=== PATIENT | male | born 1960 | race Caucasian/White ===

== ENCOUNTER 2024-06-15 15:23 | Inpatient (IN) | payer OTHER, SELFPAY ==
[2024-06-15] VITALS (8 sets, daily range): BP systolic 131–144; BP diastolic 87–100; BMI 32.9
--- NOTE | 2024-06-15 11:23 | ED.GENMED ---
History of Present Illness
<Nik Chan PA-C - Last Filed: 06/15/24 14:23>
General
Chief Complaint: Throat Problem
Source: patient
Exam Limitations: none
Time Seen by Provider: 06/15/24 11:02
History of Present Illness
History of Present Illness:
63-year-old male presents complaining of 6 days worth of illness including cough and worsening sore throat. He was tested positive for COVID 2 days ago. He initially was placed on Zithromax at the clinical finish with COVID test was negative.
Upon found being positive for COVID, they stop Zithromax but started Augmentin for possible strep throat secondary to worsening sore throat. He notes that his throat feels worse on the left side he is having trouble even swallowing his secretions
at times. No chest pain. He is on Eliquis for history of A-fib. He does complain of fatigue and occasional shortness of breath.
Past History
<SAFIA Merrill Last Filed: 06/15/24 14:23>
Past History
ED Past Medical History: Arrthythmia (atrial fibrillation), Asthma, HTN and Other (Pancreatitis)
ED Past Surgical History: Tonsilectomy
Social History
Tobacco: Non-smoker
Alcohol: Former
Drug: None
Phy Exam
<SAFIA Merrill Last Filed: 06/15/24 14:23>
Physical Exam
Physical Exam:
General: Well-appearing male no acute respiratory distress
HEENT: Normocephalic no drooling. No obvious facial asymmetry. Questionable possible swelling left side of neck. No obvious asymmetry in the posterior pharynx. No trismus
Heart: Tachycardic and irregular
Lungs: Clear no wheeze
Extremities: No cyanosis or edema
Course
<Nik Chan PA-C - Last Filed: 06/15/24 14:23>
Orders/Labs/Results
Orders:
Orders
06/15/24 11:21
CT Neck With Iv Contrast Urgent
Comment:
Reason For Exam: left throat pain
0.9% Sodium Chloride 1000 ml [Nss] 1,000 ml IV BOLUS
06/15/24 11:22
Electrocardiogram (*1) Urgent
Reason for Study: Palpitations
EKG- Treatment ONCE
06/15/24 11:26
HYDROmorphone [Dilaudid] 0.5 mg IV NOW STA
06/15/24 11:38
Complete Blood Count/With Diff Urgent
Comprehensive Metabolic Panel Urgent
Manual Differential Urgent
Rapid Strep Group A Urgent
RIMA Source: Throat/Pharynx
Specimen Description:
Date Specimen was Collected: 06/15/24
Time Specimen was Collected: 11:27
06/15/24 11:43
Acetaminophen 1000MG/100Ml [Ofirmev] 1,000 mg in 100 ml .ROUTE .STK-MED
Acetaminophen 1000MG/100Ml [Ofirmev] 1,000 mg in 100 ml IV ONCE
Acetaminophen IV Indication:: No OH & No Enteral Access
06/15/24 14:10
Dexamethasone Sod Phosphate [Decadron] 6 mg IV NOW STA
06/15/24 14:17
Ampicillin/Sulbactam 3 G [Unasyn] 3 gm 0.9% Sodium Chloride 100 ml [Nss] 100 ml IV NOW
Abnormal Lab Results
06/15/24
11:38
WBC 11.6 H 10^3/uL
(4.8-10.8)
Abs Immat Gran (auto) 0.1 H 10^3/uL
(0-0.05)
Absolute Lymphs (auto) 6.6 H 10^3/uL
(1.2-3.4)
Absolute Monos (auto) 1.0 H 10^3/uL
(0.1-0.6)
Immature Gran % 0.8 H %
(0-0.5)
Neutrophils % 31.9 L %
(42.2-75.2)
Lymphocytes % 57.4 H %
(20.5-51.1)
Segmented Neutrophils 29 L %
(42-75)
Glucose 117 H mg/dl
(70-99)
AST 79 H U/L
(17-59)
ALT 126 H U/L
(0-50)
Alkaline Phosphatase 238 H U/L
(38-126)
06/15/24 11:38
06/15/24 11:38
Vital Signs
Initial and Last Documented VS:
Initial Vital Signs
Pulse Resp BP Pulse Ox
80 18 143/91 96
06/15/24 10:02 06/15/24 10:02 06/15/24 10:02 06/15/24 10:02
Last Documented Vital Signs
Temp Pulse Resp BP Pulse Ox
97.8 F 113 27 139/92 94
06/15/24 11:04 06/15/24 13:30 06/15/24 13:30 06/15/24 13:00 06/15/24 13:30
<James Ernandez MD - Last Filed: 06/15/24 14:37>
Orders/Labs/Results
Orders:
Orders
06/15/24 11:21
CT Neck With Iv Contrast Urgent
Comment:
Reason For Exam: left throat pain
0.9% Sodium Chloride 1000 ml [Nss] 1,000 ml IV BOLUS
06/15/24 11:22
Electrocardiogram (*1) Urgent
Reason for Study: Palpitations
EKG- Treatment ONCE
06/15/24 11:26
HYDROmorphone [Dilaudid] 0.5 mg IV NOW STA
06/15/24 11:38
Complete Blood Count/With Diff Urgent
Comprehensive Metabolic Panel Urgent
Manual Differential Urgent
Rapid Strep Group A Urgent
RIMA Source: Throat/Pharynx
Specimen Description:
Date Specimen was Collected: 06/15/24
Time Specimen was Collected: 11:27
06/15/24 11:43
Acetaminophen 1000MG/100Ml [Ofirmev] 1,000 mg in 100 ml .ROUTE .STK-MED
Acetaminophen 1000MG/100Ml [Ofirmev] 1,000 mg in 100 ml IV ONCE
Acetaminophen IV Indication:: No OH & No Enteral Access
06/15/24 14:10
Dexamethasone Sod Phosphate [Decadron] 6 mg IV NOW STA
06/15/24 14:17
Ampicillin/Sulbactam 3 G [Unasyn] 3 gm 0.9% Sodium Chloride 100 ml [Nss] 100 ml IV NOW
Abnormal Lab Results
06/15/24
11:38
WBC 11.6 H 10^3/uL
(4.8-10.8)
Abs Immat Gran (auto) 0.1 H 10^3/uL
(0-0.05)
Absolute Lymphs (auto) 6.6 H 10^3/uL
(1.2-3.4)
Absolute Monos (auto) 1.0 H 10^3/uL
(0.1-0.6)
Immature Gran % 0.8 H %
(0-0.5)
Neutrophils % 31.9 L %
(42.2-75.2)
Lymphocytes % 57.4 H %
(20.5-51.1)
Segmented Neutrophils 29 L %
(42-75)
Glucose 117 H mg/dl
(70-99)
AST 79 H U/L
(17-59)
ALT 126 H U/L
(0-50)
Alkaline Phosphatase 238 H U/L
(38-126)
06/15/24 11:38
06/15/24 11:38
Vital Signs
Initial and Last Documented VS:
Initial Vital Signs
Pulse Resp BP Pulse Ox
80 18 143/91 96
06/15/24 10:02 06/15/24 10:02 06/15/24 10:02 06/15/24 10:02
Last Documented Vital Signs
Temp Pulse Resp BP Pulse Ox
97.8 F 113 27 139/92 94
06/15/24 11:04 06/15/24 13:30 06/15/24 13:30 06/15/24 13:00 06/15/24 13:30
<Nik Chan PA-C - Last Filed: 06/15/24 14:23>
MDM/Problems Addressed
Differential Diagnosis Includes:
Patient with significant throat pain as primary reason for presentation. Known COVID-positive result 2 days ago. Question secondary strep infection versus peritonsillar abscess. CT of the neck pending.
Patient has chronic paroxysmal atrial fibrillation. He is on Eliquis. He presented today in rapid atrial fibrillation. Suspect may be related to illness, dehydration, current steroid use or combination of the above. Fluids ordered.
<Nik Chan PA-C - Last Filed: 06/15/24 14:23>
*Critical Care Note
Total Time (30-74mins, 75-104mins- exclusive of procedures): Not Applicable
ED Attending Note
<Nik Chan PA-C - Last Filed: 06/15/24 14:23>
-
Portions of this chart may have been created with voice recognition software.� Occasional wrong word or��sound alike� substitutions may have occurred due to the inherent limitations of voice recognition software.
<James Ernandez MD - Last Filed: 06/15/24 14:37>
ED Attending Note
Patient seen and examined by attending physician: Yes
I performed the substantive portion of visit, reviewed & personally made and approve the management plan that is documented in note by myself or IMELDA.: Yes
ED Attending Note:
63-year-old male started with what he thought was sinus-like symptoms 6 days ago. 2 negative COVID test at home. Symptoms progressed. Started on azithromycin via a telemedicine report. 2 days ago tested positive for COVID. Has had gradually
increasing throat pain mostly on the left side. Difficulty handling secretions at times. No chest pain no shortness of breath.
On exam patient is nontoxic. Slightly hoarse voice. No drooling or stridor here. No trismus. No neck swelling. There appears to be some early soft palate swelling on the left with a questionable small exudate posterior left. Mild diffuse uvula
swelling.
Tachycardic and irregular. No respiratory distress. Warm and dry. Perfusing well.
Impression COVID infection. Given time course not a candidate for Paxlovid. Biggest concern would be the neck symptoms. No acute airway issues at this time. Some concern for early peritonsillar abscess. CT scan pending. As for his atrial
fibrillation. Heart rate is 1 10-1 20. Very reluctant to cardiovert given the airway issue. Also reluctant to rate control given previous postconversion EKGs were baseline EKGs have a heart rate in the 40s. Will give fluid and observe heart rate
at this time. Patient is anticoagulated
1400.... CT shows swelling to the soft palate and swelling to the left vallecula. Asymmetrical. Patient clinically has remained stable. No drooling or stridor. Slight hoarseness to his voice. Discussed with
Discharge Plan
Departure
Prescriptions:
No Action
cetirizine 10 MG tablet
10 mg PO DAILY
metoprolol succinate 25 MG tablet extended release 24 hr
50 mg PO BID
fluticasone propionate 1 SPRAY spray,suspension
1 spray intranasal DAILY
alprazolam 1 MG tablet extended release 24 hr
1 mg PO DAILY
apixaban [Eliquis] 5 MG tablet
5 mg PO BID
omeprazole 40 MG capsule,delayed release(DR/EC)
40 mg PO DAILY
dofetilide 500 MCG capsule
500 mcg PO Q12 Qty: 60 11RF
Referrals:
Jamse Jimenez DO [Family Provider] -
Interventions
Interventions:
*Risk Screen - Suicide Last Done: 06/15/24 11:50
*General Assessment Last Done: 06/15/24 11:50
*Neglect/Abuse Screening Last Done: 06/15/24 11:50
*ED COVID-19 Vaccine History Last Done: 06/15/24 11:50
ED-EENT Assessment Last Done: 06/15/24 11:50
ED- Pulmonary Assessment Last Done: 06/15/24 11:50
Discharge Date and Time
Print Language: ZAMBIAN
[2024-06-15] MEDS: NSS 1000 IV ×2 (11:44→17:00)
[2024-06-15] MEDS: OFIRMEV 100 IV (11:45)
[2024-06-15 12:17] LABS: ALT (SGPT) 126 U/L (0-50); AST (SGOT) 79 U/L (17-59); Albumin 4.1 g/dl (3.5-5.0); Alkaline Phosphatase 238 U/L (38-126); Blood Urea Nitrogen 13 mg/dl (9-20); Calcium 9.2 mg/dl (8.4-10.2); Carbon Dioxide 23 mmol/L (22-30); Chloride 103 mmol/L (98-107); Glucose 117 mg/dl (70-99); Potassium 4.5 mmol/L (3.5-5.1); Sodium 138 mmol/L (135-145); Total Bilirubin 0.8 mg/dl (0.2-1.3); Total Protein 7.1 g/dl (6.3-8.2); eGFR > 60.00
[2024-06-15 12:19] LABS: Hematocrit 40.9 % (39.0-52.0); Hemoglobin 14.7 g/dL (13.0-18.0); Mean Corp Hgb Conc. 35.9 g/dL (33.0-37.0); Mean Corpuscular Hgb 30.3 pg (27.0-31.0); Mean Corpuscular Volume 84.3 fL (80.0-94.0); Mean Platelet Volume 9.2 fL (7.4-10.4); Platelet Count 134 10^3/uL (130-400); Red Blood Cell Count 4.85 10^6/uL (4.70-6.10); Red Cell Dist. Width 12.5 % (11.5-14.5); White Blood Cell Count 11.6 10^3/uL (4.8-10.8)
[2024-06-15 12:20] LABS: % Basophils 0.9 % (0-2); % Eosinophils 0.1 % (0-6); % Immature Granulocytes 0.8 % (0-0.5); % Lymphocytes 57.4 % (20.5-51.1); % Monocytes 8.9 % (1.7-9.3); % Neutrophils 31.9 % (42.2-75.2); Absolute Basophils 0.1 10^3/uL (0-0.2); Absolute Immature Granulocytes 0.1 10^3/uL (0-0.05); Absolute Lymphocytes 6.6 10^3/uL (1.2-3.4); Absolute Neutrophils 3.7 10^3/uL (1.4-6.5); Nucleated Red Blood Cells % 0 % (-)
[2024-06-15 12:38] LABS: Absolute Neutrophils -Man Diff 3.4 10^3/uL (1.4-6.5); Band Neutrophils 1 % (0-3); Lymphocytes 50 % (20-51); Segmented Neutrophils 29 % (42-75)
[2024-06-15 12:42] LABS: Monocytes 4 % (2-9)
[2024-06-15 12:45] LABS: Atypical Lymphocytes 16 %; Platelets Checked YES
[2024-06-15 12:46] LABS: Microcytosis Slight; Normal RBC Morphology No; Ovalocytes FEW
[2024-06-15 12:47] LABS: Total Cells Counted 100
[2024-06-15] MEDS: DECADRON 6 MG IV ×3 (14:29→20:55)
[2024-06-15] MEDS: UNASYN IV ×2 (14:30→20:54)
--- NOTE | 2024-06-15 15:17 | W.PN.ENT ---
Today's Communication
-
seen in ER
Impression / Plan
-
Pt has Covid and epiglottic, vallecula swelling
needs admission, antibiotics, steroids, diflucan
Subjective Data
-
asked to see patient for sore throat and dysphagia
Objective Data
-
Vital Signs
Temp Pulse Resp BP Pulse Ox
97.8 F 113 27 139/92 94
06/15/24 11:04 06/15/24 13:30 06/15/24 13:30 06/15/24 13:00 06/15/24 13:30
Lab Results
06/15/24 11:38
06/15/24 11:38
Calcium 9.2 mg/dl (8.4-10.2) 06/15/24 11:38
Total Bilirubin 0.8 mg/dl (0.2-1.3) 06/15/24 11:38
AST 79 U/L (17-59) H 06/15/24 11:38
ALT 126 U/L (0-50) H 06/15/24 11:38
Alkaline Phosphatase 238 U/L (38-126) H 06/15/24 11:38
flexible laryngoscopy- epiglottic swelling and aryepiglottif fold particularly on left, exudate of vallecula, airway OK,
Physical Exam
-
flexible laryngoscopy- epiglottic swelling and aryepiglottif fold particularly on left, exudate of vallecula, airway OK,
Chest: Clear
Data Reviewed
-
Radiology Results: Report Reviewed and Image Reviewed
--- NOTE | 2024-06-15 15:20 | W.PN.UPDATE ---
Update Note
Progress Note Update
I personally performed a history and physical exam of the patient and discussed management with the resident. I reviewed the resident's note and agree with the documented findings and plan of care HPI/CC.
63 y/o M p/w CC of odynophagia. He has been ill for 6 days and tested positive for COVID 2 days ago. Since then he has been on Augmentin but has had worsening odynophagia. Also complains of difficulty managing secretions. Specifically he states
that he is having trouble swallowing secretions. Currently without any drooling.
139/92, 113, 27, 97.8 �F, 94% RA
Gen: NAD, AAOx3.
Eyes: EOMI, PERRLA, no scleral icterus.
Neck: supple. No lymphadenopathy.
CV: tachy, irreg/irreg, +S1/S2, no m/r/g.
Resp: CTAB, no rales, wheezes, or rhonchi.
Abd: +BS, soft, NT, ND
Skin: No rashes.
Neuro: CN 2-12 intact, non-focal.
Psych: Normal mood and affect.
Lab Results
06/15/24
11:38
WBC 11.6 H
RBC 4.85
Hgb 14.7
Hct 40.9
MCV 84.3
MCH 30.3
MCHC 35.9
RDW 12.5
Plt Count 134
Plt Count Comment Yes
MPV 9.2
Abs Immat Gran (auto) 0.1 H
Absolute Neuts (auto) 3.7
Absolute Lymphs (auto) 6.6 H
Absolute Monos (auto) 1.0 H
Absolute Eos (auto) 0.0
Absolute Basos (auto) 0.1
Total Counted 100
Immature Gran % 0.8 H
Neutrophils % 31.9 L
Lymphocytes % 57.4 H
Monocytes % 8.9
Eosinophils % 0.1
Basophils % 0.9
Nucleated RBC % 0
Abs Neuts (Manual) 3.4
Segmented Neutrophils 29 L
Band Neutrophils 1
Lymphocytes (Manual) 50
Monocytes (Manual) 4
Atypical Lymphocytes 16
Normal RBC Morphology No
Microcytosis Slight
Ovalocytes Few
Sodium 138
Potassium 4.5
Chloride 103
Carbon Dioxide 23
BUN 13
Creatinine 0.8
eGFR > 60.00
Glucose 117 H
Calcium 9.2
Total Bilirubin 0.8
AST 79 H
ALT 126 H
Alkaline Phosphatase 238 H
Total Protein 7.1
Albumin 4.1
CTA chest: There is enlargement of the adenoids and tonsils. Enlargement of the lingual tonsils extending inferiorly to the vallecula, left greater than right. Subtle low density within the left vallecula, but no evidence for well-formed abscess at
this time. There is pharyngeal mucosal thickening present diffusely. There is also soft tissue thickening in the region of the larynx, and would suggest a component of laryngitis. On these supine images, no airway is identified in the region of the
oropharynx, and this finding can be position dependent. Significantly enlarged lymph nodes within the neck, left greater than right, compatible with inflammatory adenitis. The visualized upper lungs appear clear. Not mentioned above, the visualized
ascending aorta has short axis diameter 4.5 cm. The patient has had previous CT of the chest of November 13, 2019, with ascending aorta having short axis diameter 4.1 cm at that time. Consideration for follow-up CT angiography of the chest when
clinically feasible.
Sepsis due to acute pharyngitis:
-already seen by ENT, discussed with Dr. Ruiz.
-Flexible laryngoscopy: epiglottic swelling and aryepiglottic fold particularly on left, exudate of vallecula, airway OK
-cont with IV Unasyn/Decadron/Diflucan
-IVF support
-speech eval (Yasmin Arora notified via [employer] at 1536 that the pt needs to be seen today)
-clears with meds for now
-suspect elevated LFTs due to acute infection
Afib with RVR:
-ECG (read by me): Afib @ 124, nl axis and QRS/QTc intervals, no acute ST/TW changes
-attempt rate control with aggressive hydration
-IV BB PRN
-cont Eliquis
Essential HTN:
-cont Lisinopril
Obesity due to excess calories:
-encourage wt loss
-effects all aspects of care
--- NOTE | 2024-06-15 15:22 | HPS.HSE ---
Family Physician
-
Family Physician: James Jimenez
Chief Complaint
-
Sore throat and difficulty swallowing.
History of Present Illness
James Simental, age 63, came to the emergency on 06-15-24 with progressive sore throat and difficulty swallowing. He was chocking on his own saliva due to pain and decided to go to the hospital. He was initially started on azithromycin on 06-10-24
for a presumed bacterial pharyngitis, then switched to amoxicillin when he tested positive for COVID-19 on 06-12-24 (he was told he may have a superimposed bacterial infection). His throat symptoms continued to progress and then he decided to come
here. He has had 3 days of azithromycin and 2 days of amoxicillin prior to his admission.
Medical History
Past Medical History
Past Medical History: Reports Other (generalized anxiety disorder; hyperlipidemia; hypertension; atrial fibrillation status-post ablation and cardioversion; gastroesophageal reflux disease)
Past Surgical History: Reports Other (tonsillectomy)
Social History
Tobacco: Non-smoker
Alcohol: Occasional
Drug: None
Personal:
Living: With Family ()
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
Family History
Family History: Not pertinent
Allergies / Home Medications
Allergies reflects when Allergies were last updated in [facility].
Home Medications with original date entered in [facility]
Allergy/Medication List:
Allergies
Allergy/AdvReac Type Severity Reaction Status Date / Time
No Known Allergies Allergy Verified 11/23/22 11:54
Home Medications
alprazolam 1 mg tablet,extended release 24 hr 1 mg PO DAILY Mental Health/Anxiety 01/02/20
apixaban 5 mg tablet (Eliquis) 5 mg PO BID Blood clot prevention/tx 01/02/20
cetirizine 10 mg tablet 10 mg PO DAILY Allergies 01/02/20
omeprazole 40 mg capsule,delayed release 40 mg PO DAILY Gastrointestinal issue 12/05/21
alprazolam 0.5 mg tablet,extended release 24 hr 0.5 mg PO DAILYPRN PRN anxiety 06/15/24
amoxicillin 875 mg-potassium clavulanate 125 mg tablet 1 tab PO BID 06/15/24
atorvastatin 10 mg tablet 10 mg PO QPM 06/15/24
lisinopril 20 mg tablet 20 mg PO DAILY 06/15/24
methylprednisolone 4 mg tablet 4 mg PO DAILY 06/15/24
Review of Systems
-
Constitutional: Reports No Symptoms
EENT: Reports Other (sore throat; painful swallowing - solids and liquid)
Respiratory: Reports No Symptoms
Cardiac: Reports Palpitations (intermittent)
Abdomen/GI: Reports No Symptoms
: Reports No Symptoms
Musculoskeletal: Reports No Symptoms
Skin: Reports No Symptoms
Neurological: Reports No Symptoms
Endocrine: Reports No Symptoms
Hematologic/Lymphatic: Reports No Symptoms
Psych: Reports No Symptoms
Physical Exam
Vital Signs
Vital Signs
Temp Pulse Resp BP Pulse Ox
97.8 F 113 27 139/92 94
06/15/24 11:04 06/15/24 13:30 06/15/24 13:30 06/15/24 13:00 06/15/24 13:30
Physical Exam
General: No Apparent Distress and Comfortable
HEENT: NormoCephalic, Anicteric, Thrush (pharyngeal), Pharyngeal Erythema and Other (left-sided neck tenderness)
Respiratory: Clear and Non Labored Respirations
Cardiac: S1/S2 and Regular Rhythm
GI: Soft, Non Tender, Non Distended and No Hepatosplenomegaly
Rectal: Deferred by Provider
Genito-urinary: Deferred by me
Musculoskeletal: No Clubbing, No Cyanosis and No Edema
Skin: Warm, Dry and IV/Catheter Site
Neuro: Awake, Alert and Oriented
Hematologic/Lymphatic: Lymphadenopathy (left anterior and posterior cervical)
Psych: Calm
Laboratory Results
-
06/15/24 11:38
06/15/24 11:38
Laboratory Results
Total Bilirubin 0.8 mg/dl (0.2-1.3) 06/15/24 11:38
AST 79 U/L (17-59) H 06/15/24 11:38
ALT 126 U/L (0-50) H 06/15/24 11:38
Alkaline Phosphatase 238 U/L (38-126) H 06/15/24 11:38
Impression/Plan
-
Impression and plan
Sepsis secondary to acute laryngitis, pharyngitis, epiglottitis and tonsillitis, likely bacterial
COVID-19 infection
Oral thrush
- 3 days of azithromycin and 2 days of amoxicillin prior to his admission.
- Flexible laryngoscopy in the emergency by otolaryngology noted clear airway, epiglottic and aryepiglottic fold swelling, and exudate of vallecula.
- Continue ampicillin-sulbactam; started 06-15-24.
- Add fluconazole per ENT; started 06-15-24.
- IV hydration and dexamethasone.
- Low threshold for contacting ENT stat if he develops respiratory distress.
- Pain management, clear liquid diet, and speech therapy evaluation.
- He has had 1 J&J vaccine and 1 Moderna booster 2 years ago; respiratory precautions.
- Nebulizers and oxygen supplementation if needed.
- Infectious diseases consultation.
Atrial fibrillation with rapid ventricular response
History of ablation and cardioversion
- Continue metoprolol IV.
- Continue apixaban.
Essential hypertension
- Continue lisinopril.
Hyperlipidemia
- Continue atorvastatin.
Gastroesophageal reflux disease
- Continue PPI.
Generalized anxiety disorder
- Continue alprazolam.metop
Venous thromboembolism prophylaxis
- Apixaban.
Code status
- Full.
--- NOTE | 2024-06-15 16:11 | CON.MD ---
Consultation - Medical
-
Chief complaint: Sore throat and dysphagia, hoarseness
History of present illness: This patient is a 63-year-old gentleman with a history of COVID over the last 4 or 5 days. He has been treated with oral steroids as well as Augmentin. He has had a progressive sore throat and dysphagia and was having
difficulty drinking liquids today. He notices hoarseness. He does note some tightness in his throat but is not having any respiratory distress. He presented to the emergency room and CT scan was performed which did not show evidence of abscess
but did show some bolus in the vallecula particularly on the left side.
Past medical history:
Allergies: No known drug allergies
Home medications:
Alprazolam 1 mg p.o. daily as needed
Augmentin 1 p.o. twice daily
Atorvastatin 10 mg p.o. every afternoon
Cetirizine 10 mg p.o. daily
Eliquis 5 mg p.o. twice daily
Lisinopril 20 mg p.o. daily
Methylprednisolone 4 mg p.o. daily
Omeprazole 40 mg p.o. daily
Chronic illnesses: Obesity, hyperlipidemia, paroxysmal atrial fibrillation, anxiety disorder
Hospitalizations: The patient is being hospitalized for dysphagia and hoarseness as well as tightness in the throat
Family history: Asked and is noncontributory for this problem
Review of systems: Positive for dysphagia, positive for hoarseness, positive for sore throat, positive for tightness in the throat but negative for respiratory distress
Physical examination:
Head: Atraumatic and normocephalic
Eyes: Extraocular movements are intact and pupils are equal and reactive to light
Ears: Clear bilaterally
Nose: Clear mucosa without evidence of infection or bleeding, deviated septum and evidence of chronic inflammation/allergies
Thyroid gland: Normal to examination
Salivary glands: Normal to examination
Vestibular: Normal to exam
Cranial nerves II through XII: Intact bilaterally
Hypopharynx and larynx: Could not be adequately visualized with a mirror
Procedure: Flexible laryngoscopy
The patient's hypopharynx and larynx were visualized with a flexible laryngoscope through the right nose. This was done after the nose was topically anesthetized using viscous lidocaine on a Q-tip. The patient tolerated the procedure well. Good
visualization was achieved. He has inflammation and exudate of the hypopharynx and the vallecula with some swelling of the vallecula but no significant airway compromise. He does have some swelling of the epiglottis. Vocal cord motion is normal
and airway is adequate. The patient has minimal pooling of secretions
Impression/plan: This 63-year-old gentleman presents with a 5-day history of COVID-19 and also has evidence of epiglottic inflammation/epiglottitis. He has exudate in his vallecula particularly on the left side. He may have evidence of thrush. I
think antibiotics and steroids would be helpful. He has received a dose of Unasyn and that is a good choice going forward. I think it might be prudent to give him an antifungal such as fluconazole. I will plan to follow the patient
[2024-06-15] MEDS: DIFLUCAN 200 MG 50 MG IV (17:00)
[2024-06-15] MEDS: TYLENOL 1000 MG PO ×2 (17:08→20:55)
[2024-06-15] MEDS: LIPITOR 10 MG PO (17:08)
[2024-06-15] MEDS: LOPRESSOR 5 MG IV ×2 (17:09→22:16)
--- NOTE | 2024-06-15 17:40 | PTOTSP ---
ST Acute Care Evaluation
Pt's current clinical presentation is that of a functional oral, pharyngeal, and esophageal swallow. No overt s/s of penetration or aspiration observed at bedside with either solids or liquids.
Recommendations:
- Upgrade pt to REGULAR SOLIDS and THIN LIQUIDS, with meds as tolerated.
- General aspiration and reflux precautions.
- No skilled SPACE PHYSICIST services deemed necessary at this time. SPACE PHYSICIST to sign off. Please re-consult if anything changes. Thank you.
[2024-06-15] MEDS: ELIQUIS 5 MG PO (20:55)
[2024-06-16] VITALS (7 sets, daily range): BP systolic 133–162; BP diastolic 78–114; BMI 32.9
[2024-06-16] MEDS: NSS 1000 IV ×2 (01:45→08:51)
[2024-06-16] MEDS: UNASYN IV ×2 (01:46→08:51)
[2024-06-16] MEDS: DECADRON 6 MG IV ×3 (01:46→14:47)
[2024-06-16] MEDS: LOPRESSOR 5 MG IV ×3 (04:11→14:49)
--- NOTE | 2024-06-16 06:48 | W.PN.UPDATE ---
Update Note
Progress Note Update
Patient is A-fib with hr 120s, bp 162/ 108, denied chest pain. Magnesium was added to morning lab, result still pending.
Per nursing staff, the patient was a-fib at 4am Lopressor PRN given but now back to a-fib again. will add another dose of Lopressor 2.5mg IV now.
[2024-06-16] MEDS: LOPRESSOR 2.5 MG IV (07:21)
[2024-06-16 08:40] LABS: Lactic Acid 0.8 mmol/L (0.7-2.0)
[2024-06-16 08:47] LABS: Hematocrit 38.1 % (39.0-52.0); Hemoglobin 13.8 g/dL (13.0-18.0); Mean Corp Hgb Conc. 36.2 g/dL (33.0-37.0); Mean Corpuscular Hgb 30.1 pg (27.0-31.0); Mean Corpuscular Volume 83.2 fL (80.0-94.0); Mean Platelet Volume 9.3 fL (7.4-10.4); Platelet Count 150 10^3/uL (130-400); Red Blood Cell Count 4.58 10^6/uL (4.70-6.10); Red Cell Dist. Width 12.4 % (11.5-14.5); White Blood Cell Count 6.1 10^3/uL (4.8-10.8)
[2024-06-16] MEDS: PROTONIX 40 MG PO (08:49)
[2024-06-16] MEDS: TYLENOL 1000 MG PO ×3 (08:49→21:32)
[2024-06-16] MEDS: ELIQUIS 5 MG PO ×2 (08:49→19:42)
[2024-06-16] MEDS: ZYRTEC 10 MG PO (08:49)
[2024-06-16] MEDS: ZESTRIL 20 MG PO (08:50)
[2024-06-16 09:00] LABS: ALT (SGPT) 98 U/L (0-50); AST (SGOT) 47 U/L (17-59); Albumin 3.7 g/dl (3.5-5.0); Alkaline Phosphatase 200 U/L (38-126); Blood Urea Nitrogen 13 mg/dl (9-20); Calcium 9.2 mg/dl (8.4-10.2); Carbon Dioxide 22 mmol/L (22-30); Chloride 106 mmol/L (98-107); Estimated Creatinine Clearance > 125 ml/min; Glucose 145 mg/dl (70-99); Magnesium 1.9 mg/dl (1.6-2.3); Potassium 4.3 mmol/L (3.5-5.1); Sodium 140 mmol/L (135-145); Total Bilirubin 0.6 mg/dl (0.2-1.3); Total Protein 6.8 g/dl (6.3-8.2); eGFR > 60.00
[2024-06-16 09:26] LABS: Cortisol, Random 2.4 ug/dl
[2024-06-16 10:20] LABS: Lymphocytes 14 % (20-51); Monocytes 10 % (2-9); Segmented Neutrophils 56 % (42-75)
[2024-06-16 10:21] LABS: Atypical Lymphocytes 20 %; Normal RBC Morphology Yes; Platelets Checked Yes; Total Cells Counted 100
--- NOTE | 2024-06-16 11:54 | W.PN.HOSP.TC ---
Addendum entered and electronically signed by Devan Crawford MD 06/16/24 23:50:
Attending Addendum-
I saw and evaluated the patient. I reviewed the resident�s note and agree with findings and plan as documented in the resident�s note. Sub: Called by nursing re rapid a fib, patient asymptomatic ST improving, no CP palps Full 12 point ROS reviewed
and negative except as documented Exam: Vitals reviewed in chart GEN-nad throat no exudates pos cerv LAD heart tachy irreg irreg lungs clear abd soft LE no edema
# Sepsis secondary to acute viral laryngitis, pharyngitis, epiglottitis and tonsillitis
- from mono
- dc abx
- monitor
- Flexible laryngoscopy in the emergency ENT-clear airway, epiglottic and aryepiglottic fold swelling, and exudate of vallecula.
- DC ampicillin-sulbactam
- DC fluconazole
- DC dexamethasone.
- appreciate ID input
# Atrial fibrillation with rapid ventricular response
-History of ablation and cardioversion
-start IV cardizem
-continue apixaban.
-monitor on tele
# Essential hypertension
- Continue lisinopril.
# Hyperlipidemia
- Continue atorvastatin.
# Gastroesophageal reflux disease
- Continue PPI.
# Generalized anxiety disorder
- Continue alprazolam
# Venous thromboembolism prophylaxis
- Apixaban.
Code status
- Full.
Dispo if RC DC in am
Time spent coordinating care, review of plan of care with resident, personally reviewed records in EMR, med rec, consults, notes, labs, radiology, d/w nursing � 55 mins
Original Note:
Today's Communication/Plan
-
Will begin cardizem drip for afib with RVR
Assessment / Plan
Assessment / Plan
#acute laryngitis, pharyngitis, epiglottitis and tonsillitis
#COVID-19 infection
#Oral thrush
- 3 days of azithromycin and 2 days of amoxicillin prior to his admission.
- Flexible laryngoscopy in the emergency by otolaryngology noted clear airway, epiglottic and aryepiglottic fold swelling, and exudate of vallecula.
- ampicillin-sulbactam, fluconazole, and dexamethasone Discontinued 06/16 given +mono test. Lower concern for bacterial or fungal etiology at this time.
- Low threshold for contacting ENT stat if he develops respiratory distress.
- No longer having difficulty swallowing, diet advanced and tolerating PO solids, liquids, medications.
- He has had 1 J&J vaccine and 1 Moderna booster 2 years ago; respiratory precautions.
- Nebulizers and oxygen supplementation if needed.
- Infectious diseases consultation.
Atrial fibrillation with rapid ventricular response
History of ablation and cardioversion
- Continue metoprolol IV.
- Continue apixaban.
- Will begin cardizem drip, with goal HR < 110.
- Continue telemetry.
Essential hypertension
- Continue lisinopril.
Hyperlipidemia
- Continue atorvastatin.
Gastroesophageal reflux disease
- Continue PPI.
Generalized anxiety disorder
- Continue home alprazolam
Venous thromboembolism prophylaxis
- Apixaban.
Code status
- Full.
Anticipated Discharge: 24 - 48 hours
Subjective/Interval History
-
Date of Service: June 16, 2024
Reports that his sore throat is improving slightly. He no longer has any difficulty swallowing. He is tolerating PO solids and liquids. He reports a few seconds of dizziness that occurs a few times throughout the week, which has been his baseline
prior to admission and has not experienced any episodes here. He denies lightheadedness, dizziness in the hospital, chest pain, palpitations, shortness of breath, nausea, vomiting.
Objective Data
-
Labs:
Laboratory Results
06/16/24
08:17
WBC 6.1
Hgb 13.8
Hct 38.1 L
Plt Count 150
Sodium 140
Potassium 4.3
Chloride 106
Carbon Dioxide 22
BUN 13
Creatinine 0.7
Glucose 145 H
Calcium 9.2
Total Bilirubin 0.6
AST 47
ALT 98 H
Alkaline Phosphatase 200 H
Vital Signs:
Vital Signs
Temp Pulse Resp BP Pulse Ox
97.8 F 77 18 137/89 98
06/16/24 11:25 06/16/24 11:25 06/16/24 11:25 06/16/24 11:25 06/16/24 11:25
I&O
06/15/24 06/16/24 06/17/24
06:59 06:59 06:59
Intake Total 600 / 600
Balance 600 / 600
Review of Systems
-
History Source: Patient
All other systems: Reviewed and negative
Physical Exam
-
General: Well Developed, Well Nourished, No Apparent Distress, Comfortable and Conversant
HEENT: Normocephalic and Atraumatic
Respiratory: Clear to Auscultation
Cardiac: Irregular Rhythm and Tachycardic
GI: Soft, Nontender, Nondistended and Normal Bowel Sounds
Musculoskeletal: No Edema
Skin: Warm and Dry
Neuro: Awake, Alert and Oriented
Psych: Calm
Data Reviewed
-
Labs: Labs Reviewed by me and Discussed with Physician
--- NOTE | 2024-06-16 11:59 | CON.ID ---
Addendum entered and electronically signed by Alaina Schwartz MD 06/16/24 14:48:
I saw and evaluated the patient. I discussed and reviewed the resident�s note and agree with findings and plan as documented in the resident�s note.
Exam: bilateral cervical LAD. + exudate psoterior pharynx L> right. No thrush.
#Suspect acute EBV
- Pharyngitis without response to antibiotic, + atypical lymphocytes, and elevated transaminases.
-No known h/o of mono in the past.
- Check Monotest. If negative, will check EBV serology panel in AM.
-If + [place], check US of spleen assess for splenomegaly.
- Recommend supportive care.
-DC amp/sulbactam and fluconazole.
#COVID-19 infection - incidental finding
- Status-post 1* J&J vaccine and 1* Moderna booster
- No respiratory distress and clear exam.
- Asymptomatic. No indication for antiviral treatment.
- COVID isolation x 10 days from 06/12/24.
#Atrial fibrillation with rapid ventricular response
#History of ablation and cardioversion
Essential hypertension
Hyperlipidemia
Gastroesophageal reflux disease
Generalized anxiety disorder
Original Note:
Consultation
-
Date/Time Consultation Requested: 06-16-24
Date/Time Consultation Performed: 06-16-24
Requesting Provider: Dr. Lentz
Performing Provider: Dr. Schwartz
Reason for Consultation: sepsis secondary to URI; COVID-19; oral thrush
Chief Complaint / Past History
Chief Complaint
Sore throat and difficulty swallowing
History of Present Illness
James Simental, age 63, came to the emergency on 06-15-24 with progressive sore throat, fatigue and difficulty swallowing. He was started on azithromycin on 06-10-24 for a presumed bacterial pharyngitis, then switched to amoxicillin when he tested
positive for COVID-19 on 06-12-24 (he was told he may have a superimposed bacterial infection). He continued to worsen and started having difficulty swallowing - then came to the ED. In the ED, ENT performed a flexible laryngoscopy which noted clear
airway, epiglottic and aryepiglottic fold swelling, and exudate of vallecula. He was started on IV dexamethasone, ampicillin-sulbactam and fluconazole.
Past History
Past Medical History: Other (generalized anxiety disorder; hyperlipidemia; hypertension; atrial fibrillation status-post ablation and cardioversion; gastroesophageal reflux disease)
Past Surgical History: Other (tonsillectomy)
Allergy History:
No Known Allergies Allergy (Verified 11/23/22 11:54)
Medications Reviewed: Yes
Social History
Tobacco: Non-Smoker
Alcohol: Occasional
Drug: None
Personal:
Living: With Family
Employment: Employed
Review of Systems
Review of Systems
General: Change in Appetite (decreased); Negative Fever or Chills
HEENT: Lymphadenopathy (left neck)
Cardiovascular: Negative Chest Pain, Edema or Palpitations
Respiratory: Cough (mild); Negative Dyspnea
Gasteroenterology: Negative Nausea or Vomiting
Genital / Urological: Negative Dysuria
Hematologic: Negative Bleeding Problems
Endocrine: Fatigue; Negative Weakness
Musculoskeletal: Joint Pain
Skin / Hair / Nails: Negative Rash
Neurological: Negative Headache
Vital Signs
Temp Pulse Resp BP Pulse Ox
97.8 F 77 18 137/89 98
06/16/24 11:25 06/16/24 11:25 06/16/24 11:25 06/16/24 11:25 06/16/24 11:25
Physical Exam
Physical Exam
Constitutional: No Acute Distress and Comfortable
Head: Normocephalic
Eyes: Pupils Equal and Pupils Round
Pharynx: Erythema
Lymph Nodes: Lymphadenopathy (left anterior and posterior cervical)
Cardiovascular: Regular Rate and S1/S2
Pulmonary: Clear and Non Labored
Gastrointestinal: Soft, Non Tender and Non Distended
Extremities: Negative Edema, Clubbing or Cyanosis
Musculoskeletal: Negative Joint Swelling
Skin: Warm and Dry
Neurological: Awake, Alert, Oriented and No Motor Deficits
Psychological: Calm
Lab / Diagnostic Study Results
06/16/24 08:17
06/16/24 08:17
Abs Immat Gran (auto) 0.1 10^3/uL (0-0.05) H 06/15/24 11:38
Absolute Neuts (auto) 3.7 10^3/uL (1.4-6.5) 06/15/24 11:38
Absolute Lymphs (auto) 6.6 10^3/uL (1.2-3.4) H 06/15/24 11:38
Absolute Monos (auto) 1.0 10^3/uL (0.1-0.6) H 06/15/24 11:38
Absolute Basos (auto) 0.1 10^3/uL (0-0.2) 06/15/24 11:38
Total Counted 100 06/16/24 08:17
Immature Gran % 0.8 % (0-0.5) H 06/15/24 11:38
Neutrophils % 31.9 % (42.2-75.2) L 06/15/24 11:38
Lymphocytes % 57.4 % (20.5-51.1) H 06/15/24 11:38
Monocytes % 8.9 % (1.7-9.3) 06/15/24 11:38
Eosinophils % 0.1 % (0-6) 06/15/24 11:38
Basophils % 0.9 % (0-2) 06/15/24 11:38
Abs Neuts (Manual) 3.4 10^3/uL (1.4-6.5) 06/15/24 11:38
Segmented Neutrophils 56 % (42-75) 06/16/24 08:17
Band Neutrophils Not Reportable 06/16/24 08:17
Lymphocytes (Manual) 14 % (20-51) L 06/16/24 08:17
Lactic Acid 0.8 mmol/L (0.7-2.0) 06/16/24 08:17
Microbiology Results
Micro:
06/16/24 09:21 Blood Culture - Pending
Blood/Venous
06/16/24 08:17 Blood Culture - Pending
Blood/Venous
06/15/24 11:38 Streptococcus Screen (RIMA) - Pending
Throat/Pharynx Streptococcus Rapid Screen - Final
Rapid Strep Screen (Group A) Negative
Assessment / Plan
Acute laryngitis, pharyngitis, epiglottitis, tonsillitis and lymphadenopathy
- He worsened despite of 3 days of azithromycin starting from 06-10-24 and 2 days of amoxicillin starting 06-12-24.
- Oxygenation normal on room air; T-max of 98.6 F; tachycardic with atrial fibrillation.
- Atypical lymphocytes and relative lymphocytosis on 06-15-24.
- Failure to respond with antibiotics, and improvement on dexamethasone.
- Likely a viral syndrome; discontinue ampicillin-sulbactam and fluconazole.
- Check Monotest; if negative, will check titers in AM.
COVID-19 infection
- Status-post 1* J&J vaccine and 1* Moderna booster
- No respiratory distress and clear exam.
- No indication for antiviral treatment.
- Respiratory precautions.
Atrial fibrillation with rapid ventricular response
History of ablation and cardioversion
Essential hypertension
Hyperlipidemia
Gastroesophageal reflux disease
Generalized anxiety disorder
--- NOTE | 2024-06-16 13:12 | W.PN.ENT ---
Today's Communication
-
seen at bedside
Impression / Plan
-
Pt has Covid and epiglottic, vallecula swelling
needs admission, antibiotics, steroids, diflucan
addendum 06/16- feeling somewhat better
continue treatment
Subjective Data
-
doing significantly better today
Objective Data
-
Vital Signs
Temp Pulse Resp BP Pulse Ox
97.8 F 77 18 137/89 98
06/16/24 11:25 06/16/24 11:25 06/16/24 11:25 06/16/24 11:25 06/16/24 11:25
Intake & Output
06/15/24 06/16/24 06/17/24
06:59 06:59 06:59
Intake:
Oral fluids 600 / 600
Other:
Number of approximated SMALL 1
amounts of urine
Number of approximated MODERATE 2
amounts of urine
Lab Results
06/16/24 08:17
06/16/24 08:17
Calcium 9.2 mg/dl (8.4-10.2) 06/16/24 08:17
Magnesium 1.9 mg/dl (1.6-2.3) 06/16/24 08:17
Total Bilirubin 0.6 mg/dl (0.2-1.3) 06/16/24 08:17
AST 47 U/L (17-59) 06/16/24 08:17
ALT 98 U/L (0-50) H 06/16/24 08:17
Alkaline Phosphatase 200 U/L (38-126) H 06/16/24 08:17
Physical Exam
-
Chest: Clear
Data Reviewed
-
Radiology Results: Report Reviewed
[2024-06-16] MEDS: NSS IV (13:40)
--- NOTE | 2024-06-16 14:52 | CM ---
Reviewed the chart notes and spoke with the patient via the telephone due to Covid + status. The patient resides with his spouse in a two story home with four steps to enter. The patient reports no DME/VN/SNF in the past. [facility] CM continues to be available to patient/family and is monitoring medical plan for needs at discharge.
Plan: Discharge to home when medically stable. No anticipated needs being identified at this time.
[2024-06-16 16:06] LABS: Monotest Positive (Negative)
--- NOTE | 2024-06-16 16:51 | PTCARENOTE ---
Pt came out of room upset that his 'had not been called and updated by any doctors yet.' Messages previously sent to MD, pt instructed to go back into room due to COVID restrictions, pt agreeable. This RN called the for nursing update,
was very appreciative but still adamant about hearing from MD. MD reminded, no new orders at this time. Pt satisfied and agreeable at this time.
[2024-06-16] MEDS: LIPITOR 10 MG PO (17:24)
[2024-06-16] MEDS: CARDIZEM 125 IV (19:42)
[2024-06-16] MEDS: ANESTHETIC LOZENGE 1 LOZENGE PO (20:12)
[2024-06-17] VITALS (8 sets, daily range): BP systolic 119–147; BP diastolic 80–94
--- NOTE | 2024-06-17 00:38 | PTCARENOTE ---
Initiated pt on 5 mg/hr Cardizem gtt at 19:42. BP 145/98, HR 118. Pt remained asymptomatic in Afib with HR between 100-130s. Notified MANAGER RISK. Ordered Dose increased to 10 mg/hr. BP 152/96, HR 109. After increase, pt remains in Afib with HR between
70-90s.
--- NOTE | 2024-06-17 00:47 | PTCARENOTE ---
Spoke with , Leesa, on the phone. States concerns of not speaking with MD today and confused with some of the medical decisions made. Pt unable to retain all information to relay to . Provided nursing update. Pt and requesting a
cardiology consult, already a patient of [facility]. Cardiology consult ordered. Pt and have no further complaints.
[2024-06-17] MEDS: XANAX 0.5 MG PO (01:43)
[2024-06-17] MEDS: CARDIZEM 125 IV (07:22)
[2024-06-17] MEDS: PROTONIX 40 MG PO (07:49)
[2024-06-17] MEDS: ANESTHETIC LOZENGE 1 LOZENGE PO (07:49)
[2024-06-17] MEDS: ELIQUIS 5 MG PO ×2 (07:49→20:10)
[2024-06-17] MEDS: TYLENOL 1000 MG PO ×3 (07:49→22:34)
[2024-06-17] MEDS: ZESTRIL 20 MG PO (07:51)
[2024-06-17] MEDS: ZYRTEC 10 MG PO (07:52)
--- NOTE | 2024-06-17 07:58 | CON.CAR ---
Addendum entered and electronically signed by Fer Bazzi MD 06/17/24 14:59:
I saw and examined the patient.
The HEAT TREAT SUPERVISOR or PA's note was reviewed and I agree with the note.
Comment: General: Well developed, well nourished in NAD.
Neck: Supple, no JVD, HJR, carotids +2 B/L, no bruits bilaterally.
Heart: Non displaced PMI, irregular, no murmurs, No S3, S4, no rubs.
Lungs: Clear to auscultation bilaterally, no wheeze, rhonchi, rubs bilaterally,
normal expiratory phase.
Abdomen: Normal bowel sounds, soft, non-tender, non-distended.
Extremities: No clubbing, cyanosis or edema bilaterally.
Neuro: Grossly nonfocal, awake, alert and oriented x3.
Madhav has a history of A-fib status post ablation in 2019 on chronic Eliquis, hyperlipidemia, anxiety. He presented with sepsis due to acute pharyngitis from [facility] and also is COVID-positive. He was started on antibiotics, steroids and antifungal
agents. Cardiology is consulted for atrial fibrillation. He was started on IV Cardizem drip. He is now on oral Cardizem. Discussed with patient and patient's by phone in detail. Will rate control at the present time. We could consider a
cardioversion prior to discharge if he is in isolation by another option may be to reconsider as an outpatient as he has been taking Eliquis faithfully.
Original Note:
Consultation
Consultation Request
Date/Time Consultation Requested: 06/17/24 at 0056
Date/Time Consultation Performed: 06/17/24 at 0759
Requesting Provider: Dr. Crawford
Performing Provider: Dr. Bazzi
Reason for Consultation: Afib with RVR
Medical History
-
History of Present Illness:
Patient came to [facility] Sunday and was admitted with sepsis due to acute pharyngitis and cardiology is now consulted for recurrence of Afib that is rapid. Patient was seen by ENT who performed a felx laryngoscopy bedside and noted epiglottic swelling
and exudate. Patient was started on antibiotics, steroids and antifungal. Patient was then seen by ID and there was increasing suspicion for EBV due to ongoing pharyngitis despite antibiotics which were started prior to admission. Patient tested
positive on Monospot and just had spleen u/s. Cardiology is now asked to see the patient due to rapid Afib. Patient and requested consultation because patient has a h/o pAfib with previous ablation 2019 and then recurrence of Afib leading to
Tikosyn loading in 2021. Tikosyn was ultimately stopped due to symptomatic bradycardia with dizziness. Patient was briefly on Toprol XL, but this also caused symptomatic bradycardia and again it was stopped. Patient is rapid at times and a Cardizem
gtt was started 06/16/24 and then stopped with the plan to transition to PO meds. Patient was in the bathroom washing up this AM and his HR went up to 170 and he felt tired and shaky.
PMH:
Paroxysmal Afib
s/p PVI 11/24/19
previous Tikosyn therapy stopped due to bradycardia 08/28/22
Chronic Eliquis OAC
Hyperlipidemia
Anxiety
Past Medical History
Past Medical History: Other (in HPI)
Past Surgical History: Cardiac (PVI 11/24/19) and Tonsilectomy
Social History
Tobacco: Non-Smoker
Alcohol: None
Drug: None
Personal:
Living: With Family
Family History
Family History: CAD and Hypertension
Allergies / Home Medications
Allergy/AdvReac Type Severity Reaction Status Date / Time
No Known Allergies Allergy Verified 11/23/22 11:54
�Medication �Instructions �Recorded �Confirmed �Type
alprazolam 1 mg tablet,extended 1 mg PO DAILY Mental Health/Anxiety 01/02/20 06/15/24 History
release 24 hr
apixaban 5 mg tablet (Eliquis) 5 mg PO BID Blood clot 01/02/20 06/15/24 History
prevention/tx
cetirizine 10 mg tablet 10 mg PO DAILY Allergies 01/02/20 06/15/24 History
omeprazole 40 mg capsule,delayed 40 mg PO DAILY Gastrointestinal 12/05/21 06/15/24 History
release issue
alprazolam 0.5 mg tablet,extended 0.5 mg PO DAILYPRN PRN anxiety 06/15/24 06/15/24 History
release 24 hr
amoxicillin 875 mg-potassium 1 tab PO BID Infection 06/15/24 06/15/24 History
clavulanate 125 mg tablet
atorvastatin 10 mg tablet 10 mg PO QPM High Cholesterol 06/15/24 06/15/24 History
lisinopril 20 mg tablet 20 mg PO DAILY Blood Pressure 06/15/24 06/15/24 History
methylprednisolone 4 mg tablet 4 mg PO DAILY Anti-Inflammatory 06/15/24 06/15/24 History
Review of Systems
-
History Source: Patient and Family (, Leesa, PARK WORKER by phone)
All other systems: Negative unless noted
Physical Exam
Vital Signs
Temp Pulse Resp BP Pulse Ox
98.0 F 87 18 147/85 98
06/17/24 03:06 06/17/24 07:51 06/17/24 03:06 06/17/24 07:51 06/17/24 03:06
GEN: NAD, AAOx3
HEENT: EOMI, MMM, hoarse
LUNGS: CTA B/L, no wheezes or rales
CV: Irreg irreg and rapid, Afib on tele, S1/S2, no murmur
ABD: soft, BS+, NT, ND
EXT: No clubbing, cyanosis, lesions or edema B/L
NEURO: Gross non-focal
SKIN: Warm, dry and pink. No rash
Lab Results
Monospot positive
CBC 06/17/2024: WBC 9.6, hemoglobin 14.4, PLT 180
CMP 06/17/2024: Sodium 141, potassium 4.1, BUN 17, creatinine 0.8, AST 39, ALT 77
Impression / Plan
-
PCP: Dr. Jimenez
Cardiology: Dr. Freeman
EP: Dr. Mathias
Impression:
Admitted with sepsis 06/15/24
Pharyngitis
Acute EBV
COVID positive 06/12/24
Afib with RVR
Paroxysmal Afib
s/p PVI 11/24/19
previous Tikosyn therapy stopped due to bradycardia 08/28/22
Chronic Eliquis OAC
Hyperlipidemia
Anxiety
Hyperglycemia
Echo 08/09/21: EF 60-65%, mild MR
Echo 08/27/23: EF 55 to 60%, mild LVH, trace MR
Plan:
-Patient came to [facility] Sunday and was admitted with sepsis due to acute pharyngitis and cardiology is now consulted for recurrence of Afib that is rapid. Patient was seen by ENT who performed a felx laryngoscopy bedside and noted epiglottic swelling
and exudate. Patient was started on antibiotics, steroids and antifungal. Patient was then seen by ID and there was increasing suspicion for EBV due to ongoing pharyngitis despite antibiotics which were started prior to admission. Patient tested
positive on Monospot and just had spleen u/s. Cardiology is now asked to see the patient due to rapid Afib. Patient and requested consultation because patient has a h/o pAfib with previous ablation 2019 and then recurrence of Afib leading to
Tikosyn loading in 2021. Tikosyn was ultimately stopped due to symptomatic bradycardia with dizziness. Patient was briefly on Toprol XL, but this also caused symptomatic bradycardia and again it was stopped. Patient is rapid at times and a Cardizem
gtt was started 06/16/24 and then stopped with the plan to transition to PO meds. Patient was in the bathroom washing up this AM and his HR went up to 170 and he felt tired and shaky.
-Lopressor 5 mg IV x1 now
-Called and talked with patient's using patient's cell phone for 13:20 min this morning. Patient's is an [employer] WORK[employer]. Reviewed admission thus far and plans for ongoing management of suspected acute EBV.
-From a cardiac standpoint, patient remains in Afib with RVR and has been in Afib since admission. Patient was asymptomatic with Afib on admission, but with faster HRs now he is symptomatic. Cardizem gtt helped control HRs, but once stopped HRs
increased. Cardizem CD 180 mg BID started 06/17/24, would continue for now and increase if needed. Follow HRs. Patient with h/o symptomatic sinus bradycardia as well.
-Would not pursue rhythm control at this point due to acute illness. Discussed with patient and future consideration for CV and/or restarting AAD. He had sinus bradycardia with Tikosyn in the past.
-He has not missed any doses of Eliquis.
-BP higher initially, but better with addition of Cardizem CD.
-Hyperglycemia noted. Check HgbA1c.
-LFTs trending down from admission.
-77 min in face to face, chart prep, talking with family
[2024-06-17] MEDS: CARDIZEM CD 180 MG PO ×2 (09:02→20:10)
[2024-06-17] MEDS: XANAX 0.25 MG PO ×2 (09:03→22:34)
[2024-06-17 09:06] LABS: Hematocrit 40.2 % (39.0-52.0); Hemoglobin 14.4 g/dL (13.0-18.0); Mean Corp Hgb Conc. 35.8 g/dL (33.0-37.0); Mean Corpuscular Hgb 29.4 pg (27.0-31.0); Mean Corpuscular Volume 82.2 fL (80.0-94.0); Mean Platelet Volume 9.5 fL (7.4-10.4); Platelet Count 180 10^3/uL (130-400); Red Blood Cell Count 4.89 10^6/uL (4.70-6.10); Red Cell Dist. Width 12.7 % (11.5-14.5); White Blood Cell Count 9.6 10^3/uL (4.8-10.8)
--- NOTE | 2024-06-17 09:12 | PN.CDI ---
CDI
- -
CDI:
Physician Documentation Request
Admit Date: 06/15/24 15:23
Dear Doctor Ricardo,
Please review the following and provide your response in the progress notes.
Clinical Indicators:
Pt admitted with sepsis secondary to laryngitis, pharyngitis, epiglottitis, and tonsillitis.
06/15/24 H&P: 'Past medical history...- atrial fibrillation status-post ablation and cardioversion..'
11/22/2021 Physician office H&P listed under assessment-'paroxysmal atrial fibrillation.'
12/07/2021 Discharge Summary- Discharge diagnosis include: 'Persistent atrial fibrillation...'
If possible, please provide further specificity regarding atrial fibrillation, such as:
Paroxysmal atrial fibrillation - terminates spontaneously or with intervention within 7 days of onset
Persistent atrial fibrillation - episodes of continuous AF that last more than 7 days and do not self-terminate
Permanent atrial fibrillation - when a decision has been made to accept the presence of AF and there is no further attempt to restore or maintain sinus rhythm
Other - please specify
Use of terms such as suspected, likely, concern for, or probable (associated with a specific diagnosis that is being evaluated, monitored, or treated as if it exists) are acceptable and can be coded in the inpatient setting, when documented at the
time of discharge.
Thank you,
Elisa Johnson RN, BSN
CDI Specialist
Available via [employer]
Please use your independent medical judgment in providing your response.
--- NOTE | 2024-06-17 09:57 | W.PN.HOSP.TC ---
Addendum entered and electronically signed by Devan Crawford MD 06/17/24 22:16:
Attending Addendum-
I saw and evaluated the patient. I reviewed the resident�s note and agree with findings and plan as documented in the resident�s note. Sub: patient complains of ST. upset about numeous issues this am. Answered all questions. Was in rapid a fib this
am. no CP palps Full 12 point ROS reviewed and negative except as documented Exam: Vitals reviewed in chart GEN-nad throat no exudates pos cerv LAD heart tachy irreg irreg lungs clear abd soft LE no edema
# Sepsis secondary to acute viral laryngitis, pharyngitis, epiglottitis and tonsillitis
- from mono
- dc abx
- monitor
- Flexible laryngoscopy in the emergency ENT-clear airway, epiglottic and aryepiglottic fold swelling, and exudate of vallecula.
- DC ampicillin-sulbactam
- DC fluconazole
- DC dexamethasone.
- appreciate ID input
- spleen U/S- no SMG
# Covid +
- supportive care
- isolate x 10 days from 06/12
- full PPE during close contact exams
# Paroxysmal Atrial fibrillation with rapid ventricular response
-History of ablation and cardioversion
-transition IV to PO Cardizem
-continue apixaban.
-monitor on tele
-cards input appreciated
# Acute Transaminitis
- viral from EBV
- resolving
# Essential hypertension
- Continue lisinopril.
# Hyperlipidemia
- Continue atorvastatin.
# Gastroesophageal reflux disease
- Continue PPI.
# Generalized anxiety disorder
- Continue alprazolam
# Venous thromboembolism prophylaxis
- Apixaban
Code status
- Full
Dispo if RC DC in am
Time spent coordinating care, review of plan of care with resident, personally reviewed records in EMR, med rec, consults, notes, labs, radiology, d/w nursing � 58 mins
Original Note:
Today's Communication/Plan
-
Continue diltiazem 180mg PO BID, lopressor 5mg IV prn, eliquis for afib RVR. Supportive treatment for mono. COVID isolation
Assessment / Plan
Assessment / Plan
63 year old male with PMH of afib s/p ablation/cardioversion, htn, anxiety who presented to ED for throat pain and difficulty swallowing, admitted for epiglottis and found to be in afib with RVR.
Pharyngitis, Epiglottitis
Acute EBV
- 3 days of azithromycin and 2 days of amoxicillin prior to his admission.
- Flexible laryngoscopy in the emergency by otolaryngology noted clear airway, epiglottic and aryepiglottic fold swelling, and exudate of vallecula.
- Initially started on ampicillin-sulbactam, fluconazole, and dexamethasone given concern for possible oral thrush or bacterial infection. These were discontinued 06/16 given +mono test and lower concern for bacterial or fungal etiology at this time.
- No longer having difficulty swallowing, diet advanced and tolerating PO solids, liquids, medications.
- Continue supportive measures, chloraseptic throat spray prn.
- US spleen performed today, final report pending.
- ID following, appreciate recs.
- Reviewed diagnosis and management with patient. Provided UpToDate patient information regarding mononucleosis. Called patient's to provide updates (per patient request) however it went to voicemail.
- Will reassess recommendations for time off of work upon discharge based on clinical picture.
COVID 19
- Reports positive home test prior to admission.
- He has had 1 J&J vaccine and 1 Moderna booster 2 years ago.
- Given he is asymptomatic, no indication for antiviral treatment. Nebulizers and oxygen supplementation if needed.
- COVID isolation x 10 days from 06/12/24 (patient's positive test at home)
- Will repeat COVID swab here per patient insistence
Paroxysmal atrial fibrillation with rapid ventricular response
History of ablation and cardioversion (2019)
- With cardizen drip, HR 90s-110s this AM. Transitioned to PO this AM.
- Continue diltiazem PO 180 mg BID and lopressor 5mg IV q4h prn.
- Continue abixaban and telemetry
- Per cardiology, would not pursue rhythm control at this point due to acute illness
Essential hypertension
- Continue lisinopril.
Hyperlipidemia
- Continue atorvastatin.
Gastroesophageal reflux disease
- Continue PPI.
Generalized anxiety disorder
- Continue home alprazolam- dose adjusted by pharmacy given concern for interaction with diltiazem (increases alprazolam effects and toxicities eg, sedation, lethargy)
Elevated liver enzymes
- AST 79, ALT 126, alk phos 238 on admission --> downtrending appropriately
Venous thromboembolism prophylaxis
- Apixaban.
Code status
- Full.
Anticipated Discharge: Within 24 hours
Subjective/Interval History
-
Date of Service: June 17, 2024
Complains of throat pain that is 'status quo,' about the same as yesterday. He is able to swallow solids and liquids without difficulty, choking, coughing, though he does note his sore throat feels worse during swallowing. He is tolerating PO
liquids/solids and ambulating independently. He complains of hemorrhoids that bled when he had a hard bowel movement this morning. He denies lightheadedness, dizziness, chest pain, palpitations, shortness of breath, nausea, vomiting. He had several
questions today including FMLA/time off work, results of spleen ultrasound, and plan for afib with RVR, and expressed frustration.
Objective Data
-
Labs:
Laboratory Results
06/17/24
08:50
WBC 9.6
Hgb 14.4
Hct 40.2
Plt Count 180
Sodium Pending
Potassium Pending
Chloride Pending
Carbon Dioxide Pending
BUN Pending
Creatinine Pending
Glucose Pending
Calcium Pending
Total Bilirubin Pending
AST Pending
ALT Pending
Alkaline Phosphatase Pending
Vital Signs:
Vital Signs
Temp Pulse Resp BP Pulse Ox
97.5 F 120 18 147/85 97
06/17/24 07:50 06/17/24 09:02 06/17/24 07:50 06/17/24 09:02 06/17/24 07:50
I&O
06/16/24 06/17/24 06/18/24
06:59 06:59 06:59
Intake Total 600 / 600 2470 / 2470
Balance 600 / 600 2470 / 2470
Review of Systems
-
History Source: Patient
Constitutional: Reports No Symptoms
EENT: Reports Sore Throat
Respiratory: Reports No Symptoms
Cardiac: Reports No Symptoms
Abdomen/GI: Reports No Symptoms
Genitourinary: Reports No Symptoms
Psych: Reports Other (irritated)
Physical Exam
-
General: Well Developed, Well Nourished and Comfortable
HEENT: Normocephalic and Atraumatic
Respiratory: Clear to Auscultation
Cardiac: Irregular Rhythm and Tachycardic
GI: Soft, Nontender, Nondistended and Normal Bowel Sounds
Rectal: Deferred by Provider
Musculoskeletal: No Cyanosis and No Edema
Skin: Warm and Dry
Neuro: Awake, Alert and Oriented
Psych: Agitated and Intact Judgement/Insight
Data Reviewed
-
Ultrasound: Other (final report pending)
Labs: Labs Reviewed by me and Discussed with Physician
[2024-06-17 10:01] LABS: ALT (SGPT) 77 U/L (0-50); AST (SGOT) 39 U/L (17-59); Alkaline Phosphatase 175 U/L (38-126); Blood Urea Nitrogen 17 mg/dl (9-20); Calcium 9.4 mg/dl (8.4-10.2); Carbon Dioxide 25 mmol/L (22-30); Chloride 105 mmol/L (98-107); Estimated Creatinine Clearance 114 ml/min; Glucose 143 mg/dl (70-99); Potassium 4.1 mmol/L (3.5-5.1); Sodium 141 mmol/L (135-145); Total Bilirubin 0.7 mg/dl (0.2-1.3); Total Protein 7.2 g/dl (6.3-8.2); eGFR > 60.00
[2024-06-17] MEDS: LOPRESSOR 5 MG IV (10:23)
--- NOTE | 2024-06-17 11:12 | W.PN.ID1 ---
Date of Service
Date of Service: June 17, 2024
Today's Communication
See below.
Assessment / Plan
# acute EBV
- Pharyngitis without response to antibiotic, + atypical lymphocytes, and elevated transaminases (trending down).
-No known h/o of mono in the past.
- Monoscreen +
- US spleen. If splenomegaly, avoid trauma, contact sport, etc x 4 weeks.
- Continue supportive care.
- Ordered Chloraseptic sorethroat spray.
#COVID-19 infection - incidental finding
- Status-post 1* J&J vaccine and 1* Moderna booster
- No respiratory distress and clear exam.
- Asymptomatic. No indication for antiviral treatment.
- COVID isolation x 10 days from 06/12/24.
#Atrial fibrillation with rapid ventricular response
- Cardiology following
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
Afib, hxof ablation and cardioversion
Essential hypertension
Hyperlipidemia
Gastroesophageal reflux disease
Generalized anxiety disorder
Chief Complaint
-: Other (Throat pain)
Subjective / Review of Systems
+ residual sore throat. Able to swallow. + fatigue
Vital Signs / Physical Exam
Vital Signs
Vital Signs
Temp Pulse Resp BP Pulse Ox
97.5 F 96 18 136/94 97
06/17/24 07:50 06/17/24 10:39 06/17/24 07:50 06/17/24 10:39 06/17/24 07:50
Physical Exam
Constitutional: No Acute Distress
Lymph Nodes: Lymphadenopathy (Bilateral cervical submandibular)
Cardiovascular: Irregular Rate and S1/S2
Gastrointestinal: Soft, Non Tender and Non Distended
Neurological: AO x 3
Objective Data
Lab Data
Lab Results
06/17/24 08:50
06/17/24 08:50
Estimated Creat Clear 114 ml/min 06/17/24 08:50
Lactic Acid 0.8 mmol/L (0.7-2.0) 06/16/24 08:17
Total Bilirubin 0.7 mg/dl (0.2-1.3) 06/17/24 08:50
AST 39 U/L (17-59) 06/17/24 08:50
ALT 77 U/L (0-50) H 06/17/24 08:50
Alkaline Phosphatase 175 U/L (38-126) H 06/17/24 08:50
Most recent labs reviewed.
Micro Results:
06/15/24 11:38 Streptococcus Screen (RIMA) - Final
Throat/Pharynx No Beta Hemolytic Streptococci Isolated
Streptococcus Rapid Screen - Final
Rapid Strep Screen (Group A) Negative
06/16/24 09:21 Blood Culture - Preliminary
Blood/Venous No Growth in 24 hours- Final report to follow
06/16/24 08:17 Blood Culture - Preliminary
Blood/Venous No Growth in 24 hours- Final report to follow
[2024-06-17] MEDS: CHLORASEPTIC/SORE THROAT SPRAY 1 SPRAY PO (12:18)
--- NOTE | 2024-06-17 12:23 | CM ---
Reviewed the chart notes. Patient started on Cardizem PO for rate control. CM continues to be available to patient/family and is monitoring medical plan for needs at discharge.
Plan: Discharge to home when medically stable with outpatient cardiology follow-up.
[2024-06-17 13:34] LABS: COVID-19 Antigen Positive (Negative)
[2024-06-17] MEDS: MIRALAX 17 GRAMS PO (18:03)
[2024-06-17] MEDS: LIPITOR 10 MG PO (18:03)
[2024-06-18] VITALS (10 sets, daily range): BP systolic 111–170; BP diastolic 65–93; PULSE 139; O2SAT 97
--- NOTE | 2024-06-18 07:53 | W.PN.CARDCBS ---
Addendum entered and electronically signed by Sanjay Llamas MD 06/18/24 13:27:
I saw and examined the patient.
The Sommelier's note was reviewed and I agree with the note.
Comment: Briefly, 63-year-old male past medical history of atrial fibrillation status post PVI who presents with pharyngitis found to be both EBV and COVID-positive and developed atrial fibrillation with rapid ventricular response for which
cardiology is consulted
Heart rates remain elevated in atrial fibrillation
Uptitrate Cardizem to 240 mg twice daily
Continue Eliquis for cardioembolic prophylaxis
Plan for rate control of atrial fibrillation for now with consideration of outpatient cardioversion when acute illness resolves
Original Note:
Today's Communication / Plan
-
Increased Cardizem CD to 240 mg BID
Cont Eliquis
Check CXR Likely d/c to home tomorow
Impression / Plan
-
PCP: Dr. Jimenez
Cardiology: Dr. Freeman
EP: Dr. Mathias
Impression:
Admitted with sepsis 06/15/24
Pharyngitis
Acute EBV
COVID positive 06/12/24
Afib with RVR
Paroxysmal Afib
s/p PVI 11/24/19
previous Tikosyn therapy stopped due to bradycardia 08/28/22
Chronic Eliquis OAC
Hyperlipidemia
Anxiety
Hyperglycemia
Echo 08/09/21: EF 60-65%, mild MR
Echo 08/27/23: EF 55 to 60%, mild LVH, trace MR
Plan:
-Tele reviewed and HRs greater than 100 at rest more than 50% of the time. HRs greater than 140 with activity and he is symptomatic. Increased dose of Cardizem CD to 240 mg BID starting 06/18/24 AM.
-He has not missed any doses of Eliquis 5 mg BID.
-Would not attempt rhythm control currently due to acute illness. Discussed with patient and future consideration for CV and/or restarting AAD. He had sinus bradycardia with Tikosyn in the past.
-Patient complains of productive cough that is worse since admission. Afebrile. Check CXR.
-BP higher initially, but better with addition of Cardizem CD.
-Hyperglycemia noted, HgbA1c normal at 5.2%.
-Called and talked with patient's again 06/18/24 AM and reviewed the above. Also reviewed with medicine resident and the plan for ongoing HR control efforts and likely d/c 06/19/24.
HPI: [facility] Sunday and was admitted with sepsis due to acute pharyngitis and cardiology is now consulted for recurrence of Afib that is rapid. Patient was seen by ENT who performed a felx laryngoscopy bedside and noted epiglottic
swelling and exudate. Patient was started on antibiotics, steroids and antifungal. Patient was then seen by ID and there was increasing suspicion for EBV due to ongoing pharyngitis despite antibiotics which were started prior to admission. Patient
tested positive on Monospot and just had spleen u/s. Cardiology is now asked to see the patient due to rapid Afib. Patient and requested consultation because patient has a h/o pAfib with previous ablation 2019 and then recurrence of Afib
leading to Tikosyn loading in 2021. Tikosyn was ultimately stopped due to symptomatic bradycardia with dizziness. Patient was briefly on Toprol XL, but this also caused symptomatic bradycardia and again it was stopped. Patient is rapid at times and
a Cardizem gtt was started 06/16/24 and then stopped with the plan to transition to PO meds. Patient was in the bathroom washing up this AM and his HR went up to 170 and he felt tired and shaky.
Progress Note - Outreach Counselor
Subjective
Date of Service: June 18, 2024
He feels palpitations with activity
Objective
Labs:
Labs
Hgb 14.4 g/dL (13.0-18.0) 06/17/24 08:50
Hct 40.2 % (39.0-52.0) 06/17/24 08:50
Plt Count 180 10^3/uL (130-400) 06/17/24 08:50
Sodium 141 mmol/L (135-145) 06/17/24 08:50
Potassium 4.1 mmol/L (3.5-5.1) 06/17/24 08:50
BUN 17 mg/dl (9-20) 06/17/24 08:50
Creatinine 0.8 mg/dL (0.7-1.3) 06/17/24 08:50
Glucose 143 mg/dl (70-99) H 06/17/24 08:50
Vital Signs and I&O:
Vital Signs
Temp Pulse Resp BP Pulse Ox
97.2 F 87 19 111/75 94
06/18/24 03:11 06/18/24 03:11 06/18/24 03:11 06/18/24 03:11 06/18/24 03:11
Vital Signs
Temp Pulse Resp BP Pulse Ox
97.2 F 87 19 111/75 94
06/18/24 03:11 06/18/24 03:11 06/18/24 03:11 06/18/24 03:11 06/18/24 03:11
Intake & Output
06/16/24 06/17/24 06/18/24 06/19/24
06:59 06:59 06:59 06:59
Intake Total 600 / 600 2470 / 2470 2620 / 2620
Balance 600 / 600 2470 / 2470 2620 / 2620
Physical Exam
Physical Exam
GEN: NAD, AAOx3
HEENT: MMM, hoarse
LUNGS: No audibel wheeze
CV:Afib on tele
ABD: ND
EXT: No edema B/L
NEURO: Gross non-focal
SKIN: No rash
[2024-06-18 07:55] LABS: Glycohemoglobin (HgbA1c) 5.2 % (4.0-5.6)
[2024-06-18 07:58] LABS: Hemoglobin 13.7 g/dL (13.0-18.0); Mean Corp Hgb Conc. 35.1 g/dL (33.0-37.0); Mean Corpuscular Hgb 29.4 pg (27.0-31.0); Mean Corpuscular Volume 83.7 fL (80.0-94.0); Mean Platelet Volume 8.8 fL (7.4-10.4); Platelet Count 174 10^3/uL (130-400); Red Blood Cell Count 4.66 10^6/uL (4.70-6.10); Red Cell Dist. Width 12.9 % (11.5-14.5); White Blood Cell Count 6.9 10^3/uL (4.8-10.8)
[2024-06-18 08:27] LABS: ALT (SGPT) 72 U/L (0-50); AST (SGOT) 36 U/L (17-59); Albumin 3.6 g/dl (3.5-5.0); Alkaline Phosphatase 164 U/L (38-126); Blood Urea Nitrogen 15 mg/dl (9-20); Calcium 9.2 mg/dl (8.4-10.2); Carbon Dioxide 29 mmol/L (22-30); Chloride 104 mmol/L (98-107); Estimated Creatinine Clearance 114 ml/min; Glucose 88 mg/dl (70-99); Magnesium 1.9 mg/dl (1.6-2.3); Potassium 4.2 mmol/L (3.5-5.1); Sodium 142 mmol/L (135-145); Total Bilirubin 0.5 mg/dl (0.2-1.3); Total Protein 6.7 g/dl (6.3-8.2); eGFR > 60.00
[2024-06-18] MEDS: CARDIZEM CD 240 MG PO ×2 (08:34→20:25)
[2024-06-18] MEDS: ZYRTEC 10 MG PO (08:34)
[2024-06-18] MEDS: PROTONIX 40 MG PO (08:34)
[2024-06-18] MEDS: ELIQUIS 5 MG PO ×2 (08:34→20:25)
[2024-06-18] MEDS: TYLENOL 1000 MG PO ×3 (08:35→21:53)
[2024-06-18] MEDS: ZESTRIL 20 MG PO (08:35)
[2024-06-18] MEDS: XANAX 0.25 MG PO ×2 (08:36→20:25)
--- NOTE | 2024-06-18 08:53 | W.PN.HOSP.TC ---
Addendum entered and electronically signed by Devan Crawford MD 06/19/24 00:11:
Attending Addendum-
I saw and evaluated the patient. I reviewed the resident�s note and agree with findings and plan as documented in the resident�s note. Sub: ST improved. 'i dont wanna go back to work'. conrinues to have elevated HR's. asymptomatic. Full 12 point ROS
reviewed and negative except as documented Exam: Vitals reviewed in chart GEN-nad heart tachy irreg irreg lungs clear abd soft no HSM LE no edema
# Sepsis secondary to acute viral laryngitis, pharyngitis, epiglottitis and tonsillitis
- resolving
- from acute EBV
- no abx
- monitor
- Flexible laryngoscopy in the emergency ENT-clear airway, epiglottic and aryepiglottic fold swelling, and exudate of vallecula.
- DC'd ampicillin-sulbactam, fluconazole, dexamethasone.
- appreciate ID input
- spleen U/S- no SMG
# Covid +
- supportive care
- isolate x 10 days from 06/12
- full PPE worn during close contact exams
# Cough
- cxr ordered and personally reviewed
- no acute CP disease
# Paroxysmal Atrial fibrillation with rapid ventricular response
-History of ablation and cardioversion
-uncontrolled
-transitioned from IV to PO Cardizem
-increase PO Cardizem further
-continue apixaban.
-monitor on tele
-cards input appreciated
# Acute Transaminitis
- viral from EBV
- resolving
# Essential hypertension
- Continue lisinopril.
# Hyperlipidemia
- Continue atorvastatin.
# Gastroesophageal reflux disease
- Continue PPI.
# Generalized anxiety disorder
- Continue alprazolam
# Venous thromboembolism prophylaxis
- Apixaban
Code status
- Full
Dispo - DC in am if RC'd
Time spent coordinating care, review of plan of care with resident, personally reviewed records in EMR, med rec, consults, notes, labs, radiology, d/w nursing � 55 mins
Original Note:
Today's Communication/Plan
-
Diltiazem uptitrated, anticipate discharge home tomorrow if rate adequately controlled
Assessment / Plan
Assessment / Plan
63 year old male with PMH of afib s/p ablation/cardioversion, htn, anxiety who presented to ED for throat pain and difficulty swallowing, admitted for epiglottis and found to be in afib with RVR.
Pharyngitis, Epiglottitis
Acute EBV
- 3 days of azithromycin and 2 days of amoxicillin prior to his admission.
- Flexible laryngoscopy in the emergency by otolaryngology noted clear airway, epiglottic and aryepiglottic fold swelling, and exudate of vallecula.
- Initially started on ampicillin-sulbactam, fluconazole, and dexamethasone given concern for possible oral thrush or bacterial infection. These were discontinued 06/16 given +mono test and lower concern for bacterial or fungal etiology at this time.
- No longer having difficulty swallowing, diet advanced and tolerating PO solids, liquids, medications.
- Continue supportive measures, chloraseptic throat spray prn.
- ID following. US spleen wnl.
- Reviewed diagnosis and management with patient and his on speakerphone. Provided UpToDate patient information regarding mononucleosis. Reviewed supportive measures and that his mono can be safely managed at home. Reviewed risk of transmission
to , who can follow up with her PCP if needed.
- Will reassess recommendations for time off of work upon discharge based on clinical picture. Excuse note provided 06/17.
COVID 19
- Reports positive home test prior to admission. Repeat COVID test here positive.
- He has had 1 J&J vaccine and 1 Moderna booster 2 years ago.
- Given he was asymptomatic, no indication for antiviral treatment.
- Chest xray 06/18 negative for pneumonia
- Supportive measures for productive cough including robatussin prn.
- COVID isolation x 10 days from 06/12/24 (patient's positive test at home)
- Reviewed safety of outpatient management with patient and his .
Paroxysmal atrial fibrillation with rapid ventricular response
History of ablation and cardioversion (2019)
- Initially on cardizem drip. Transitioned to PO diltiazem 180mg BID 06/17.
- Per cardiology, diltiazem uptitrated today to 240mg BID.
- Continue abixaban and telemetry
- Anticipate discharge home tomorrow if rate control is reasonable. Will follow up outpatient with cardiology to discuss cardioversion after acute illness has resolved.
Chronic sinusitis
- Nasal irrigation, saline spray prn
- Patient aware he would have to bring in home nasal steroid spray for nonformulary
- Recommend follow up with ENT outpatient as needed
Essential hypertension
- Continue lisinopril.
Hyperlipidemia
- Continue atorvastatin.
Gastroesophageal reflux disease
- Continue PPI.
Generalized anxiety disorder
- Continue home alprazolam.
Elevated liver enzymes
- AST 79, ALT 126, alk phos 238 on admission --> downtrending appropriately
Hemorrhoids
- No longer bleeding. Continue miralax daily prn. Tucks pads, preparation H ordered prn.
Venous thromboembolism prophylaxis
- Apixaban.
Code status
- Full.
Dispo planning: Anticipate discharge home tomorrow pending clinical course
Anticipated Discharge: Within 24 hours
Subjective/Interval History
-
Date of Service: June 18, 2024
No acute events overnight. Sore throat remains relatively unchanged. He reports new onset productive cough with brown sputum. He also reports increased congestion which is a chronic issue. He denies fevers, chills, light headedness, dizziness, chest
pain, shortness of breath, nausea, vomiting. His bowel movement yesterday was formed, soft, easy to pass, with no rectal bleeding. He is tolerating PO diet and ambulating as tolerated. His was on speakerphone.
Objective Data
-
Labs:
Laboratory Results
06/18/24 06/18/24
07:23 07:24
WBC 6.9
Hgb 13.7
Hct 39.0
Plt Count 174
Sodium 142
Potassium 4.2
Chloride 104
Carbon Dioxide 29
BUN 15
Creatinine 0.8
Glucose 88
Calcium 9.2
Total Bilirubin 0.5
AST 36
ALT 72 H
Alkaline Phosphatase 164 H
Vital Signs:
Vital Signs
Temp Pulse Resp BP Pulse Ox
97.2 F 108 19 143/89 94
06/18/24 03:11 06/18/24 08:35 06/18/24 03:11 06/18/24 08:35 06/18/24 03:11
I&O
06/17/24 06/18/24 06/19/24
06:59 06:59 06:59
Intake Total 2470 / 2470 2620 / 2620
Balance 2470 / 2470 2620 / 2620
Review of Systems
-
History Source: Patient
All other systems: Reviewed and negative
Physical Exam
-
General: Well Developed, Well Nourished, No Apparent Distress, Comfortable and Conversant
HEENT: Normocephalic and Atraumatic
Respiratory: Clear to Auscultation and Non Labored Respirations; Negative Wheezes
Cardiac: Irregular Rhythm and Tachycardic
GI: Soft, Nontender, Nondistended and Normal Bowel Sounds
Musculoskeletal: No Cyanosis and No Edema
Skin: Warm and Dry
Neuro: Awake, Alert and Oriented
Psych: Calm and Intact Judgement/Insight
Data Reviewed
-
Diagnostic Radiology: Image personally visualized and interpreted, Report Reviewed by me, Discussed with Physician and Discussed with Nurse
Labs: Labs Reviewed by me and Discussed with Physician
--- NOTE | 2024-06-18 10:45 | PTOTSP ---
PATIENT ABLE TO FUNCTION INDEPENDENTLY IN THE ROOM WITHOUT LOSS OF BALANCE OR ISSUE. NOTED TO HAVE ELEVATED HEART RATE TO 165 WITH MOBILITY AND REPORTED SHORTNESS OF BREATH. RN MADE AWARE. EDUCATED PATIENT IN PACING SELF AND LISTENING TO HIS BODY
WHEN HE IS SHORT OF BREATH AND NEEDS TO/SHOULD TAKE A REST. PATIENT VERBALIZED UNDERSTANDING OF THIS. OTHERWISE, PATIENT REQUIRING NO FURTHER ACUTE CARE SKILLED P.T. AT THIS TIME.
--- NOTE | 2024-06-18 10:45 | PTOTSP ---
Pt currently at mod I/I level with basic self care, transfers and functional mobility. HR does elevate with light activity and pt does exhibit SOB. Provided education in energy conservation; encouraged pt to slow his speed of activity and mobility
and sit to rest when SOB in order to help maintain his current level of function. Pt receptive to information provided. No further skilled OT indicated at this time
[2024-06-18 10:47] LABS: % Basophils 0.4 % (0-2); % Eosinophils 0.3 % (0-6); % Immature Granulocytes 0.9 % (0-0.5); % Monocytes 11.9 % (1.7-9.3); % Neutrophils 42.5 % (42.2-75.2); Absolute Immature Granulocytes 0.1 10^3/uL (0-0.05); Absolute Monocytes 0.8 10^3/uL (0.1-0.6); Absolute Neutrophils 2.9 10^3/uL (1.4-6.5); Nucleated Red Blood Cells % 0 % (-)
--- NOTE | 2024-06-18 11:32 | CM ---
Reviewed the chart notes. CM continues to be available to patient/family and is monitoring medical plan for needs at discharge.
Plan: Discharge to home when medically stable. No needs identified at this time.
[2024-06-18] MEDS: OCEAN, SALINE MIST 2 SPRAYS NASAL (12:07)
[2024-06-18] MEDS: ROBITUSSIN 200 MG PO ×3 (12:08→21:53)
--- NOTE | 2024-06-18 12:48 | W.PN.ID1 ---
Date of Service
Date of Service: June 18, 2024
Today's Communication
ID will sign off.
Assessment / Plan
# acute EBV
- Pharyngitis, cervical LAD, + atypical lymphocytes, elevated transaminases (trending down).
-Monoscreen +
- US spleen normal size
- Continue supportive care.
# Head congestion
- pt with hx of chronic sinusitis.
- Nasal fluticasone is not in hospital formulary.
- Will defer to hospitalist for management.
#COVID-19 infection - incidental finding
- Status-post 1* J&J vaccine and 1* Moderna booster
- COVID Ag + 06/12/24
- No indication for antiviral treatment.
- COVID isolation x 10 days from 06/12/24.
#Atrial fibrillation with rapid ventricular response
- Cardiology following
ID will sign off.
#Conditions MATE FOURTH
Afib, hxof ablation and cardioversion
Essential hypertension
Hyperlipidemia
Gastroesophageal reflux disease
Generalized anxiety disorder
Chief Complaint
-: Other (Throat pain)
Subjective / Review of Systems
c/o head and chest congestion.
Sore throat better.
Vital Signs / Physical Exam
Vital Signs
Vital Signs
Temp Pulse Resp BP Pulse Ox
97.5 F 108 16 126/93 97
06/18/24 11:15 06/18/24 11:15 06/18/24 11:15 06/18/24 11:15 06/18/24 11:15
Physical Exam
Constitutional: No Acute Distress
Head: Other (No frontal or maxillary sinus tenderness)
Eyes: Sclera Anicteric
Pulmonary: Clear
Gastrointestinal: Soft, Non Tender, Non Distended and Normal Bowel Sounds
Genito-Urinary: Negative CVA Tenderness
Extremities: Negative Edema
Neurological: AO x 3
Objective Data
Lab Data
Lab Results
06/18/24 07:24
06/18/24 07:23
Estimated Creat Clear 114 ml/min 06/18/24 07:23
Lactic Acid 0.8 mmol/L (0.7-2.0) 06/16/24 08:17
Total Bilirubin 0.5 mg/dl (0.2-1.3) 06/18/24 07:23
AST 36 U/L (17-59) 06/18/24 07:23
ALT 72 U/L (0-50) H 06/18/24 07:23
Alkaline Phosphatase 164 U/L (38-126) H 06/18/24 07:23
Most recent labs reviewed.
Micro Results:
06/16/24 09:21 Blood Culture - Preliminary
Blood/Venous No Growth in 48 hours- Final report to follow
06/16/24 08:17 Blood Culture - Preliminary
Blood/Venous No Growth in 48 hours- Final report to follow
06/15/24 11:38 Streptococcus Screen (RIMA) - Final
Throat/Pharynx No Beta Hemolytic Streptococci Isolated
Streptococcus Rapid Screen - Final
Rapid Strep Screen (Group A) Negative
06/18/24 CXR : No active cardiopulmonary disease.
06/15/[address]: There is enlargement of the adenoids and tonsils. Enlargement of the lingual tonsils extending inferiorly to the vallecula, left greater than right. Subtle low density within the left vallecula, but no evidence for well-formed
abscess at this time. There is pharyngeal mucosal thickening present diffusely. There is also soft tissue thickening in the region of the larynx, and would suggest a component of laryngitis. Significantly enlarged lymph nodes within the neck, left
greater than right, compatible with inflammatory adenitis.
[2024-06-18] MEDS: LIPITOR 10 MG PO (18:21)
[2024-06-18] MEDS: ANESTHETIC LOZENGE 1 LOZENGE PO (20:26)
[2024-06-19 03:54] VITALS: BP 124/76
--- NOTE | 2024-06-19 07:39 | W.PN.HOSP.TC ---
Addendum entered and electronically signed by Devan Crawford MD 06/19/24 23:57:
Attending Addendum-
I saw and evaluated the patient. I reviewed the resident�s note and agree with findings and plan as documented in the resident�s note. Sub: very irritable and belligerent. 'you guys keep dropping the ball' asymptomatic. Full 12 point ROS reviewed
and negative except as documented Exam: Vitals reviewed in chart GEN-nad heart irreg irreg lungs clear abd soft no HSM LE no edema
# Sepsis secondary to acute viral laryngitis, pharyngitis, epiglottitis and tonsillitis
- resolved
- from acute EBV
- no abx
- monitor
- Flexible laryngoscopy in the emergency ENT-clear airway, epiglottic and aryepiglottic fold swelling, and exudate of vallecula.
- DC'd ampicillin-sulbactam, fluconazole, dexamethasone.
- appreciate ID input
- spleen U/S- no SMG
# Covid +
- supportive care
- isolate x 10 days from 06/12
- full PPE worn during close contact exams
# Cough
- cxr ordered and personally reviewed
- no acute CP disease
# Paroxysmal Atrial fibrillation with rapid ventricular response
- rates much better controlled
-History of ablation and cardioversion
-transitioned from IV to PO Cardizem
- continue increase PO Cardizem
-continue apixaban.
-monitor on tele
-cards input appreciated- stable for dc
# Acute Transaminitis
- viral from EBV
- resolving
# Essential hypertension
- Continue lisinopril.
# Hyperlipidemia
- Continue atorvastatin.
# Gastroesophageal reflux disease
- Continue PPI.
# Generalized anxiety disorder
- Continue alprazolam
# Venous thromboembolism prophylaxis
- Apixaban
Code status
- Full
Dispo - DC HOME
Time spent coordinating care, DC planning, review of DC plan of care with resident, transition of care, review of records, med rec/scripts sent electronically, consults, notes, d/w consultants, nursing, cards, and CM� 38 mins
Original Note:
Today's Communication/Plan
-
Discharge home today
Assessment / Plan
Assessment / Plan
63 year old male with PMH of afib s/p ablation/cardioversion, htn, anxiety who presented to ED for throat pain and difficulty swallowing, admitted for epiglottis and found to be in afib with RVR.
Pharyngitis, Epiglottitis
Acute EBV
- 3 days of azithromycin and 2 days of amoxicillin prior to his admission.
- Flexible laryngoscopy in the emergency by otolaryngology noted clear airway, epiglottic and aryepiglottic fold swelling, and exudate of vallecula.
- Initially started on ampicillin-sulbactam, fluconazole, and dexamethasone given concern for possible oral thrush or bacterial infection. These were discontinued 06/16 given +mono test and lower concern for bacterial or fungal etiology at this time.
- No longer having difficulty swallowing, diet advanced and tolerating PO solids, liquids, medications.
- Continue supportive measures, chloraseptic throat spray prn.
- ID following. US spleen wnl.
- Reviewed diagnosis and management with patient and his on speakerphone. Provided UpToDate patient information regarding mononucleosis. Reviewed supportive measures and that his mono can be safely managed at home. Reviewed risk of transmission
to , who can follow up with her PCP if needed.
- Stable for discharge home. Recommend return to work in 1 week. Discussed with patient that if he feels he needs more time off of work he can follow up with his PCP. He is agreeable.
COVID 19
- Reports positive home test prior to admission. Repeat COVID test here positive.
- He has had 1 J&J vaccine and 1 Moderna booster 2 years ago.
- Given he was asymptomatic, no indication for antiviral treatment.
- Chest xray 06/18 negative for pneumonia
- Supportive measures for productive cough including robatussin, lozenges prn.
- COVID isolation x 10 days from 06/12/24 (patient's positive test at home)
- Reviewed safety of outpatient management with patient and his .
- Stable for discharge home, plan as above.
Paroxysmal atrial fibrillation with rapid ventricular response
History of ablation and cardioversion (2019)
- Initially on cardizem drip. Transitioned to PO diltiazem 180mg BID 06/17.
- Per cardiology, PO diltiazem uptitrated to 240mg BID 06/18.
- Continue abixabanm diltiazem. Continue telemetry while inpatient
- HR overnight wnl, elevated this morning with activity to 140s max- patient remained asymptomatic, and HR returned to 100s-110s sitting in chair.
- Overall rate stable and adequately controlled for discharge home today with outpatient management. Await cardiology assessment today. Will follow up outpatient with cardiology to discuss cardioversion after acute illness has resolved. Discussed
with patient and . He is agreeable.
Chronic sinusitis
- Nasal irrigation, saline spray prn.
- Patient aware he would have to bring in home nasal steroid spray for nonformulary.
- Recommend follow up with ENT outpatient as needed.
Essential hypertension
- Continue lisinopril.
Hyperlipidemia
- Continue atorvastatin.
Gastroesophageal reflux disease
- Continue PPI.
Generalized anxiety disorder
- Continue home alprazolam.
Elevated liver enzymes
- AST 79, ALT 126, alk phos 238 on admission --> have downtrended appropriately, stable today AST 44, ALT 72, alk phos 178
- Repeat BMP in 1 week and follow up with PCP
Hemorrhoids
- No longer bleeding. Continue miralax daily prn. Tucks pads, preparation H ordered prn.
Venous thromboembolism prophylaxis
- Apixaban.
Code status
- Full.
Dispo planning: Discharge home today
Anticipated Discharge: Today
Subjective/Interval History
-
Date of Service: June 19, 2024
No acute events overnight. Feeling well overall. Still reports sore throat, cough, congestion, which are unchanged from yesterday. He says the throat spray, lozenges, robatussin, nasal saline are helping. He reports occasional shortness of breath
but has had none today. He denies lightheadedness, dizziness, palpitations, chest pain, shortness of breath, nausea, vomiting. He does not feel his tachycardia at all, in fact he asks me 'did I set off any alarms?' He is tolerating PO diet and
ambulating in room without assistance. His Leesa was on speakerphone
Objective Data
-
Labs:
Laboratory Results
06/19/24
06:45
WBC Pending
Hgb Pending
Hct Pending
Plt Count Pending
Sodium Pending
Potassium Pending
Chloride Pending
Carbon Dioxide Pending
BUN Pending
Creatinine Pending
Glucose Pending
Calcium Pending
Total Bilirubin Pending
AST Pending
ALT Pending
Alkaline Phosphatase Pending
Vital Signs:
Vital Signs
Temp Pulse Resp BP Pulse Ox
97.5 F 85 22 124/76 95
06/19/24 03:54 06/19/24 03:54 06/19/24 03:54 06/19/24 03:54 06/19/24 03:54
I&O
06/18/24 06/19/24 06/20/24
06:59 06:59 06:59
Intake Total 2619 / 0 2679 / 2679
Balance 2619 / 2679
Review of Systems
-
History Source: Patient
All other systems: Reviewed and negative
Physical Exam
-
General: Well Developed, Well Nourished, No Apparent Distress, Comfortable and Conversant
HEENT: Normocephalic and Atraumatic
Respiratory: Clear to Auscultation and Non Labored Respirations; Negative Wheezes
Cardiac: S1/S2, Irregular Rhythm and Tachycardic
GI: Soft, Nontender, Nondistended and Normal Bowel Sounds
Musculoskeletal: No Cyanosis and No Edema
Skin: Warm and Dry
Neuro: Awake, Alert and Oriented
Psych: Calm and Intact Judgement/Insight
Data Reviewed
-
Labs: Labs Reviewed by me and Discussed with Physician
[2024-06-19 07:42] LABS: ALT (SGPT) 72 U/L (0-50); AST (SGOT) 44 U/L (17-59); Albumin 4.5 g/dl (3.5-5.0); Alkaline Phosphatase 178 U/L (38-126); Blood Urea Nitrogen 13 mg/dl (9-20); Calcium 9.6 mg/dl (8.4-10.2); Carbon Dioxide 30 mmol/L (22-30); Chloride 99 mmol/L (98-107); Estimated Creatinine Clearance 101 ml/min; Glucose 101 mg/dl (70-99); Potassium 4.2 mmol/L (3.5-5.1); Sodium 143 mmol/L (135-145); Total Bilirubin 0.7 mg/dl (0.2-1.3); Total Protein 7.9 g/dl (6.3-8.2); eGFR > 60.00
[2024-06-19 07:49] LABS: Hematocrit 46.3 % (39.0-52.0); Hemoglobin 15.8 g/dL (13.0-18.0); Mean Corp Hgb Conc. 34.1 g/dL (33.0-37.0); Mean Corpuscular Hgb 29.4 pg (27.0-31.0); Mean Corpuscular Volume 86.1 fL (80.0-94.0); Platelet Count 212 10^3/uL (130-400); Red Blood Cell Count 5.38 10^6/uL (4.70-6.10); Red Cell Dist. Width 12.7 % (11.5-14.5); White Blood Cell Count 8.5 10^3/uL (4.8-10.8)
[2024-06-19 08:00] VITALS: BP 125/93
[2024-06-19] MEDS: TYLENOL 1000 MG PO (08:19)
[2024-06-19] MEDS: PROTONIX 40 MG PO (08:19)
[2024-06-19] MEDS: ELIQUIS 5 MG PO (08:19)
[2024-06-19] MEDS: CARDIZEM CD 240 MG PO (08:20)
[2024-06-19] MEDS: ZESTRIL 20 MG PO (08:20)
[2024-06-19] MEDS: ZYRTEC 10 MG PO (08:20)
--- NOTE | 2024-06-19 09:37 | CM ---
Reviewed the chart notes. Patient for discharge today. Patient's spouse will provide transportation home. CM continues to be available to patient/family and is monitoring medical plan for needs at discharge.
Plan: Discharge to home today. No additional needs identified at this time.
--- NOTE | 2024-06-19 10:20 | W.PN.UPDATE ---
Addendum entered and electronically signed by Helena Liz PA-C 06/19/24 14:15:
TT from RN stating patient requested to speak with cardiology prior to discharge. Reviewed plan with patient and who patient called and had on speaker phone. Explained that he is stable from a cardiac standpoint for discharge and we will
continue rate control of atrial fibrillation with increased dose Cardizem CD 240mg twice daily. Explained that he should continue on uninterrupted anticoagulation and after he recovers from an infectious standpoint, he has been arranged for a follow
up visit in the office to discuss options for rhythm control moving forward. All questions answered.
Original Note:
Update Note
Progress Note Update
Telemetry reviewed. HRs improving. Continue increased dose Cardizem CD 240mg BID. Continue uninterrupted anticoagulation with Eliquis 5mg BID. Plan is for discharge today, stable from cardiac standpoint for d/c. Follow up arranged. Will discuss
plan/options for rhythm control as OP.
[2024-06-19 11:40] VITALS: BP 144/96
--- NOTE | 2024-06-19 13:06 | W.DCSUMMARY ---
Addendum entered and electronically signed by Devan Crawford MD 06/20/24 00:03:
Read, reviewed, and agree. See same day progress note for additional details. Cardizem xl sent to pharmacy will resend cardizem CD 240mg PO BID
Collin Crawford MD
Original Note:
Documented by User: Violeta Silva MD, Resident 06/19/24 19:31
Discharge Summary
Discharge Data
Date of Admission: 06/15/24
Date of Discharge: 06/19/24
-
Pending Results: Yes
Additional Pending Results:
06/16/24 Blood Culture (preliminary: no growth in 72 hours)
Hospital Course
Discharging Physician : Dr. Silva, Dr. Crawford
Disposition : Home
Primary care physician : Dr. Jimenez
Principal Discharge diagnosis : Atrial fibrillation with rapid ventricular response, acute ebstein roy virus, COVID, pharyngitis, epiglotitis
Chronic Discharge diagnosis : Afib s/p ablation/cardioversion, HTN, anxiety, GERD, hemerrhoids, chronic sinusitis, HLD, obesity
Hospital Course : Presented to ED with 6 days of worsening sore throat and odynophagia. ENT consulted and flexible laryngoscopy showed pharyngitis with no significant airway compromise. Admitted for acute pharyngitis and was initially started on
unasyn, diflucan, decadron. His monoscreen was positive, at which time management of pharyngitis was transitioned to supportive measures. Incidentally, he was found to be in afib with RVR though he was always asymptomatic. Rate control was
eventually achieved with diltiazem PO 240 mg BID and he remained on eliquis. On day of discharge, he was stable and will follow up with cardiology outpatient.
Important imaging findings :
CT Neck 06/15/24:
IMPRESSION: There is enlargement of the adenoids and tonsils. Enlargement of the lingual tonsils extending inferiorly to the vallecula, left greater than right. Subtle low density within the left vallecula, but no evidence for well-formed abscess at
this time. There is pharyngeal mucosal thickening present diffusely. There is also soft tissue thickening in the region of the larynx, and would suggest a component of laryngitis.
On these supine images, no airway is identified in the region of the oropharynx, and this finding can be position dependent.
Significantly enlarged lymph nodes within the neck, left greater than right, compatible with inflammatory adenitis.
The visualized upper lungs appear clear.
Not mentioned above, the visualized ascending aorta has short axis diameter 4.5 cm. The patient has had previous CT of the chest of November 13, 2019, with ascending aorta having short axis diameter 4.1 cm at that time. Consideration for follow-up CT
angiography of the chest when clinically feasible.
Spleen ultrasound 06/17/24:
IMPRESSION: Unremarkable exam of the spleen.
Chest xray 06/18/24:
IMPRESSION:
No active cardiopulmonary disease.
Procedure findings :
Flexible laryngoscopy 06/15:
He has inflammation and exudate of the hypopharynx and the vallecula with some swelling of the vallecula but no significant airway compromise. He does have some swelling of the epiglottis. Vocal cord motion is normal and airway is adequate. The
patient has minimal pooling of secretions
Discharge Plan
-
Patient Disposition: Home (Routine Discharge)
Discharge Diagnosis/Procedures: Pharyngitis, epiglottitis, acute ebstein roy virus (mono), COVID, paroxysmal atrial fibrillation with rapid ventricular response
Condition: Good
Diet: No restrictions and Regular
Activity: No restrictions
Blood Work: CMP (complete metabolic panel) in 1 week
Instructions: Atrial fibrillation, Tachycardia, Sore Throat, Adult (DC), Mononucleosis (DC), Diltiazem, Lorazepam, COVID-19 in adults - Discharge instructions
Stand Alone Forms: Return to Work
Referrals:
Sofiya Oates PA-C [Specified Professional Personl] - 07/11/24 8:20 am (You have a follow up visit with Dr. Mathias's Sofiya BADILLO, at the [place] office. Please call with questions. )
James Jimenez, DO [Family Provider] - in one week (Please schedule appointment with your primary care doctor)
Additional Discharge Medication Instructions: New medications:
Diltiazem 240mg capsule extended release: Take 1 capsule two times per day.
Diltiazem may increase the side effects of lorazepam (fatigue, sedation). If you feel more fatigue or sedation, call your PCP to discuss reducing dose of alprazolam. Do not drive until you know how these medications work for you.
Continue supportive measures if needed for mono (ebstein roy virus) and covid: tylenol, throat spray, lozenges, nasal saline sprays, miralax. See attached instructions for more information.
Prescriptions:
New
diltiazem HCl 240 mg Capsule,Extended Release 24hr
240 mg PO BID Qty: 60 0RF
Continued
cetirizine 10 MG tablet
10 mg PO DAILY
alprazolam 1 MG tablet extended release 24 hr
1 mg PO DAILY
Patient Comments:
06/15/2024: last filled 05/20/24, 30 tabs for 30 days from [facility]#[id number]
Eliquis 5 MG tablet
5 mg PO BID
omeprazole 40 MG capsule,delayed release(DR/EC)
40 mg PO DAILY
atorvastatin 10 mg tablet
10 mg PO QPM
lisinopril 20 mg tablet
20 mg PO DAILY
alprazolam 0.5 mg tablet extended release 24 hr
0.5 mg PO DAILYPRN PRN (Reason: anxiety)
Patient Comments:
06/15/2024: last filled 05/20/24, 30 tabs for 30 days from [id number]
Discontinued
methylprednisolone 4 mg tablet
4 mg PO DAILY
amoxicillin-pot clavulanate 875-125 mg tablet
1 tab PO BID
Discharge Orders:
Discharge Patient (As Directed); Ordered 06/19/24
Ordered By: Violeta Silva
Discharge Date and Time
Discharge Date/Time: 06/19/24 16:54
Print Language: BRITISH

Documented by User: Devan Crawford MD 06/19/24 23:54
Discharge Summary
Discharge Data
Date of Admission: 06/15/24
Date of Discharge: 06/19/24
Discharge Plan
-
Patient Disposition: Home (Routine Discharge)
Discharge Diagnosis/Procedures: Pharyngitis, epiglottitis, acute ebstein roy virus (mono), COVID, paroxysmal atrial fibrillation with rapid ventricular response
Condition: Good
Diet: No restrictions and Regular
Activity: No restrictions
Blood Work: CMP (complete metabolic panel) in 1 week
Instructions: Atrial fibrillation, Tachycardia, Sore Throat, Adult (DC), Mononucleosis (DC), Diltiazem, Lorazepam, COVID-19 in adults - Discharge instructions
Stand Alone Forms: Return to Work
Referrals:
Sofiya Oates PA-C [Specified Professional Personl] - 07/11/24 8:20 am (You have a follow up visit with Dr. Mathias's JUSTINO, Sofiya Oates, at the [place] office. Please call with questions. )
James Jimenez, DO [Family Provider] - in one week (Please schedule appointment with your primary care doctor)
Additional Discharge Medication Instructions: New medications:
Diltiazem 240mg capsule extended release: Take 1 capsule two times per day.
Diltiazem may increase the side effects of lorazepam (fatigue, sedation). If you feel more fatigue or sedation, call your PCP to discuss reducing dose of alprazolam. Do not drive until you know how these medications work for you.
Continue supportive measures if needed for mono (ebstein roy virus) and covid: tylenol, throat spray, lozenges, nasal saline sprays, miralax. See attached instructions for more information.
Prescriptions:
New
diltiazem HCl 240 mg Capsule,Extended Release 24hr
240 mg PO BID Qty: 60 0RF
Continued
cetirizine 10 MG tablet
10 mg PO DAILY
alprazolam 1 MG tablet extended release 24 hr
1 mg PO DAILY
Patient Comments:
06/15/2024: last filled 05/20/24, 30 tabs for 30 days from [id number]
Eliquis 5 MG tablet
5 mg PO BID
omeprazole 40 MG capsule,delayed release(DR/EC)
40 mg PO DAILY
atorvastatin 10 mg tablet
10 mg PO QPM
lisinopril 20 mg tablet
20 mg PO DAILY
alprazolam 0.5 mg tablet extended release 24 hr
0.5 mg PO DAILYPRN PRN (Reason: anxiety)
Patient Comments:
06/15/2024: last filled 05/20/24, 30 tabs for 30 days from [id number]
Discontinued
methylprednisolone 4 mg tablet
4 mg PO DAILY
amoxicillin-pot clavulanate 875-125 mg tablet
1 tab PO BID
Discharge Orders:
Discharge Patient (As Directed); Ordered 06/19/24
Ordered By: Violeta Silva
Discharge Date and Time
Discharge Date/Time: 06/19/24 16:54
Print Language: BRITISH
--- NOTE | 2024-06-19 13:30 | PTCARENOTE ---
Pt informed by nursing staff
--- NOTE | 2024-06-19 13:31 | PTCARENOTE ---
Pt informed by nursing staff that he was going to be discharged today. Pt became very upset saying that he had 'no idea that he was going to be going home today.' went in to see pt and he requested cardio to come see him before he leaves.
instructed PCT to begin taking off telemetry. Pt told PCT that we 'dropped the ball on professionalism here at [place].' made aware of interactions, no new orders at this time.
--- NOTE | 2024-06-19 15:50 | W.PN.UPDATE ---
Update Note
Progress Note Update
At bedside to discuss plan with patient- informed by nursing that patient is angry about his care. On arrival to room, cardiology was present and just wrapped up conversation. Patient's Leesa was still on speakerphone, and remained involved in
conversation per patient request. His primary complaint was that he 'found out my discharge order was in from a tech instead of a doctor' and 'there was no team meeting.' Via teach back, patient and confirmed understanding of the plan to
discharge today based on several of our prior conversations. They admit understanding and had no further questions this AM or now. Regarding the team meeting, I assured them that the hospitalist team and cardiology team have been communicating and
are in agreement that discharge home today is appropriate; cardiology documented their review of telemetry readings and stable for discharge. The patient and his are very understanding of this and agreeable with care provided. Patient
apologetic and attributes anger to his anxiety. We again discussed alprazolam and reminded him to monitor for increased side effects now that he is also taking diltiazem, and if this occurs he should discuss dose adjustments with his prescribing
doctor. Reviewed supportive symptom management, outpatient follow up plans, and all questions were answered.
[2024-06-19 16:00] VITALS: BP 138/75
== END 2024-06-19 16:54 | disposition home or self-care (01) | DRG 871 ==
LOC: 2 NORTH 15:23
PROVIDERS: Nurse Practitioner Family; Physician Assistant; Student in an Organized Health Care Education/Training Program; ADMITTING PHYSICIAN Internal Medicine; ATTENDING PHYSICIAN Family Medicine; CONSULT PHYSICIAN Internal Medicine Cardiovascular Disease; EMERGENCY PHYSICIAN Emergency Medicine; FAMILY PHYSICIAN Family Medicine; OTHER PHYSICIAN Internal Medicine Infectious Disease; OTHER PHYSICIAN Otolaryngology Facial Plastic Surgery
PROC: 0CJS8ZZ Inspection of Larynx, Via Natural or Artificial Opening Endoscopic (ICD-10-PCS; 2024-06-15)
DX: A41.89 Other specified sepsis (principal); U07.1 COVID-19; J05.10 Acute epiglottitis without obstruction; B37.0 Candidal stomatitis; J06.0 Acute laryngopharyngitis; J03.90 Acute tonsillitis, unspecified; I48.0 Paroxysmal atrial fibrillation; I10 Essential (primary) hypertension; F41.1 Generalized anxiety disorder; E78.5 Hyperlipidemia, unspecified; K21.9 Gastro-esophageal reflux disease without esophagitis; I88.9 Nonspecific lymphadenitis, unspecified; J45.909 Unspecified asthma, uncomplicated; R74.01 Elevation of levels of liver transaminase levels; R73.9 Hyperglycemia, unspecified; B27.00 Gammaherpesviral mononucleosis without complication; J32.9 Chronic sinusitis, unspecified; E66.09 Other obesity due to excess calories; Z68.32 Body mass index [BMI] 32.0-32.9, adult; Z79.01 Long term (current) use of anticoagulants; Z79.899 Other long term (current) drug therapy
CPT/HCPCS: 70491; 71046; 76705; 80053; 82533; 83036; 83605; 83735; 85025; 85027; 86308; 87040; 87070; 87811; 87880; 92610; 93005; 96361; 96365; 96375; 97162; 97166; 99285; Q9967

== ENCOUNTER 2024-07-15 09:50 | Day surgery (SDC) | payer OTHER, SELFPAY ==
--- NOTE | 2024-07-15 13:57 | ITS.CL.CARDI ---
Applications Engineer - Cardioversion
Cardioversion
Procedure Report:
Date of Procedure: Jul 15 2024
Procedure: Cardioversion
Indication: Symptomatic atrial fibrillation
Performing Physician: Chapo Godinez DO, FACC
Technique: The patient was brought to the holding area. Signed informed consent was obtained. A time out was called and performed. The patient was anesthetized by the anesthesia service. Anticoagulation status was reviewed and appropriate. R2 pads
were placed anteriorly and posteriorly. A 225 J synchronized biphasic shock restored normal sinus rhythm without significant bradycardia. There were no complications.
Conclusion: Uncomplicated cardioversion from atrial fibrillation to sinus rhythm.
Recommendation: Routine post cardioversion care. Continue terminal manager anticoagulation. Cardizem CD reduced to 240 mg daily given prior history of bradycardia in sinus.
== END 2024-07-15 12:57 | disposition home or self-care (01) ==
LOC: CATH 09:50
PROVIDERS: ATTENDING PHYSICIAN Internal Medicine Cardiovascular Disease; FAMILY PHYSICIAN Family Medicine; OTHER PHYSICIAN Internal Medicine Cardiovascular Disease
DX: I48.0 Paroxysmal atrial fibrillation (principal); I10 Essential (primary) hypertension; E78.5 Hyperlipidemia, unspecified; K21.9 Gastro-esophageal reflux disease without esophagitis; Z79.01 Long term (current) use of anticoagulants
CPT/HCPCS: 92960; 93005

== ENCOUNTER 2024-07-25 10:54 | Day surgery (SDC) | payer OTHER, SELFPAY ==
--- NOTE | 2024-07-25 11:39 | ITS.CL.CARDI ---
Deck Engineer - Cardioversion
Cardioversion
Procedure Report:
Date of Procedure: 07/25/24
Procedure: Cardioversion
Indication: Symptomatic atrial fibrillation
Performing Physician: Marlo Trammell MD
Technique: The patient was brought to the holding area. Signed informed consent was obtained. A time out was called and performed. The patient was anesthetized by the anesthesia service. Anticoagulation status was reviewed and appropriate. R2 pads
were placed anteriorly and posteriorly. A 200 J synchronized biphasic shock restored normal sinus rhythm without significant bradycardia. There were no complications.
Conclusion: Uncomplicated cardioversion from atrial fibrillation to sinus rhythm.
Recommendation: Routine post cardioversion care. Continue jail anticoagulation.
== END 2024-07-25 12:17 | disposition home or self-care (01) ==
LOC: CATH 10:54
PROVIDERS: ATTENDING PHYSICIAN Internal Medicine Cardiovascular Disease; FAMILY PHYSICIAN Family Medicine; OTHER PHYSICIAN Internal Medicine Cardiovascular Disease
DX: I48.0 Paroxysmal atrial fibrillation (principal); R55 Syncope and collapse; I10 Essential (primary) hypertension; E78.2 Mixed hyperlipidemia; Z79.01 Long term (current) use of anticoagulants
CPT/HCPCS: 92960; 93005

== ENCOUNTER 2024-10-28 09:38 | Day surgery (SDC) | payer OTHER, SELFPAY ==
--- NOTE | 2024-10-06 09:11 | HPS.HSE ---
Family Physician
-
Family Physician: Toby Delgado,
Chief Complaint
-
Paroxysmal atrial fibrillation.
History of Present Illness
The patient is a 64 year old male presenting today for paroxysmal atrial fibrillation. The patient reports a history of intermittent dyspnea, palpitations, lightheadedness, and fatigue associated with this diagnosis. He previously
underwent 4 cardioversions, with the last occurring in July 2024, and pulmonary vein isolation in November 2019 due to his arrhythmia. He is on current pharmacological therapy with Diltiazem and Amiodarone. He has been compliant with Eliquis for
oral anticoagulation. He notes that his atrial fibrillation symptoms greatly interfere with his activities of daily living and overall impact his quality of life. He is interested in pursuing pulmonary vein isolation again for further arrhythmia
management. He denies any current complaints today such as chest pain, shortness of breath at rest, nausea, vomiting, diarrhea, dizziness, cough, sore throat, or fever.
Medical History
Past Medical History
Past Medical History: Reports Other
Additional Past Medical History:
1. Paroxysmal atrial fibrillation, status post cardioversion x4 and pulmonary vein isolation 11/2019; pharmacological therapy with Diltiazem and Amiodarone, oral anticoagulation with Eliquis.
2. Hypertension.
3. Hyperlipidemia.
4. Mild left ventricular hypertrophy.
5. Questionable asthma.
6. GERD.
7. Chavez's esophagus.
8. Hiatal hernia.
9. Colon polyps.
10. Diverticulosis.
11. Hemorrhoids.
12. Acute pharyngitis and epiglottis, 05/2024, secondary to Eulalio Padilla Virus.
13. History of recurrent pancreatitis.
14. Vertigo.
15. Multilevel degenerative disc disease.
16. Compression fractures of T12, L1, and L3 vertebrae.
17. Osteoarthritis, status post right total knee arthroplasty 10/2023.
18. Chronic sinusitis.
19. Anxiety.
20. Obesity, BMI 35.7.
Past Surgical History: Reports Other
Additional Past Surgical History:
1. Pulmonary vein isolation.
2. Cardioversion x4.
3. Right total knee arthroplasty.
4. Tonsillectomy.
5. Vasectomy.
6. Colonoscopy x3.
7. Endoscopy.
Social History
Tobacco: Non-smoker
Alcohol: None
Personal:
Living: Other (He lives in a 2 story home with his . )
Family History
Family History: Not pertinent
Allergies / Home Medications
Allergy/Medication List:
Home medications:
1. Acetaminophen 650 mg p.o. every 6 hours as needed.
2. Albuterol sulfate 2 puff inhaled every 6 hours as needed.
3. Alprazolam 1 mg p.o. daily.
4. Alprazolam 0.5 mg p.o. daily as needed.
5. Amiodarone 200 mg p.o. twice a day.
6. Atorvastatin 10 mg p.o. every evening.
7. Cetirizine 10 mg p.o. daily.
8. Diltiazem HCl 240 mg p.o. daily.
9. Eliquis 5 mg p.o. twice a day.
10. Fluticasone propionate 1 spray intranasal daily as needed.
11. Lisinopril 20 mg p.o. daily.
12. Omeprazole 40 mg p.o. daily.
Allergies: Seasonal. No known drug allergies.
Review of Systems
-
A 12 point ROS was completed and negative except as noted: Yes
Physical Exam
Vital Signs
Blood pressure 118/75. Heart rate 81. Respirations 18. Pulse ox 97% on room air.
Height 5 feet, 8 inches. Weight 106.6 kg. BMI 35.7.
Physical Exam
General: Well Developed, Well Nourished and No Apparent Distress
HEENT: NormoCephalic, Moist mucous membranes, Atraumatic and PERRLA
Respiratory: Clear
Cardiac: Irregular Rhythm
GI: Soft, Non Tender, Non Distended and Other (Obese. )
Musculoskeletal: Normal Gait & Station
Skin: Warm and Dry
Neuro: AO x 3 and Nonfocal/grossly intact
Laboratory Results
-
DIAGNOSTIC STUDIES as of 10/06/2024: White blood cell count 4.8. Hemoglobin 15.3. Platelet count 159,000. PT 13.6. INR 1.01. Sodium 142. Potassium 4.8. BUN 16. Creatinine 1.0. Glucose 102. Calcium 9.3. Magnesium 2.1. AST 26. ALT 29. Albumin 4.4.
Type and screen A negative.
EKG 10/06/2024: Atrial fibrillation. Non-specific intra-ventricular conduction block.
Echocardiogram 08/27/2023: Normal left ventricular size and systolic function. No regional wall motion abnormalities are seen. Mild left ventricular hypertrophy. Estimated ejection fraction is 55-60%. Diastolic function indeterminate. Normal right
ventricular size and function. Thickened mitral valve leaflets. Trace mitral regurgitation. Trileaflet aortic valve. Thickened aortic valve with normal leaflet excursion. Trace aortic regurgitation.Tricuspid valve opens normally. Trace tricuspid
regurgitation. Estimated pulmonary artery pressure of 20-25 mmHg, assuming a right atrial pressure of 3 mmHg. Compared to prior study 08/09/2021 no significant change noted.
Stress echocardiogram 08/09/2021: Negative for ischemia with hyperdynamic LV function at peak baseline and no focal or regional wall motion abnormalities on rest or stress imaging.
Impression/Plan
-
IMPRESSION/PLAN:
1. Paroxysmal atrial fibrillation: The patient is in need of pulmonary vein isolation with Dr. Bear Mathias on 10/28/2024. The benefits and risks of the procedure have been explained to the patient. The patient understands these risks and wishes to
proceed. He will not be required to undergo a pre-procedural transesophageal echocardiogram as he has been complaint with his home oral anticoagulation. He will continue Eliquis uninterrupted prior to his procedure. He will take no medications the
morning of his ablation.
[2024-10-06 09:25] VITALS: BMI 35.7
[2024-10-06 09:57] LABS: % Basophils 0.2 % (0-2); % Eosinophils 0.6 % (0-6); % Immature Granulocytes 0.8 % (0-0.5); % Lymphocytes 29.5 % (20.5-51.1); % Monocytes 8.9 % (1.7-9.3); Absolute Lymphocytes 1.4 10^3/uL (1.2-3.4); Absolute Monocytes 0.4 10^3/uL (0.1-0.6); Absolute Neutrophils 2.9 10^3/uL (1.4-6.5); Hemoglobin 15.3 g/dL (13.0-18.0); Mean Corp Hgb Conc. 34.8 g/dL (33.0-37.0); Mean Corpuscular Hgb 30.8 pg (27.0-31.0); Mean Corpuscular Volume 88.7 fL (80.0-94.0); Nucleated Red Blood Cells % 0 % (-); Platelet Count 159 10^3/uL (130-400); Red Blood Cell Count 4.96 10^6/uL (4.70-6.10); Red Cell Dist. Width 13.3 % (11.5-14.5); White Blood Cell Count 4.8 10^3/uL (4.8-10.8)
[2024-10-06 10:00] LABS: INR 1.01; PT 13.6 Sec (11.4-14.6)
[2024-10-06 10:36] LABS: ALT (SGPT) 29 U/L (0-50); AST (SGOT) 26 U/L (17-59); Albumin 4.4 g/dl (3.5-5.0); Alkaline Phosphatase 70 U/L (38-126); Blood Urea Nitrogen 16 mg/dl (9-20); Calcium 9.3 mg/dl (8.4-10.2); Carbon Dioxide 28 mmol/L (22-30); Chloride 105 mmol/L (98-107); Estimated Creatinine Clearance 91 ml/min; Glucose 102 mg/dl (70-99); Magnesium 2.1 mg/dl (1.6-2.3); Potassium 4.8 mmol/L (3.5-5.1); Sodium 142 mmol/L (135-145); Total Bilirubin 0.4 mg/dl (0.2-1.3); Total Protein 7.1 g/dl (6.3-8.2); eGFR > 60.00
[2024-10-28] VITALS (10 sets, daily range): BP systolic 101–143; BP diastolic 67–109; BMI 35.7
[2024-10-28 13:29] LABS: ACT-LR - POC 302 Seconds (116-155)
[2024-10-28 13:47] LABS: ACT-LR - POC 261 Seconds (116-155)
--- NOTE | 2024-10-28 14:13 | ITS.CL.ABL ---
Architecture Consultant - Ablation
Ablation
Procedure Report:
ELECTROPHYSIOLOGY ABLATION STUDY
DATE:: October 28, 2024�����������������������������REFERRING: Dr. Bear Mathias
INDICATION: Persistent supraventricular tachycardia in the form of atrial fibrillation.� Prior pulmonary vein isolation in November 2019 with a 20 mm cryoballoon
HISTORY: See H and P.��As above
ANTIARRHYTHMIC DRUG: Amiodarone
PRE-PROCEDURE TUSHAR: No atrial thrombus on intracardiac ultrasound
PRESENTING RHYTHM: A-fib
'TIME-OUT':��called and confirmed.
SEDATION/ANESTHESIA:��provided via the anesthesia department using general anesthesia (LMA).
INTRAVENOUS/ARTERIAL ACCESS:
Right femoral venous - 8Fr
Left femoral venous - 8 Fr, 6 Fr
Vascade vascular closure was utilized for both femoral venous access sites.
Ultrasound guidance for bilateral femoral vein access was utilized by me to obtain access with demonstration of normal anatomy
CHADS-VASC Score:
HAS-Bled Score
PROCEDURE:
1.��A decapolar CS catheter was placed within the CS for mapping and pacing.��This was also used as the reference catheter for the 3-D map.
2. The intracardiac ultrasound catheter was positioned in the RA to identify the FO for targeting of transseptal puncture, assist��in identification of the pulmonary vein ostia, monitoring pre and post ablation pulmonary vein flow velocities,
monitoring for 'bubble' formation during RF application as a sign of thermal injury,��and to monitor for pericardial effusion during mapping and ablation procedure.���Left atrial size, LV ejection fraction, and pulmonary vein flows were monitored
pre and post ablation procedure. The other valves were inspected and found to be free of significant regurgitation or stenosis.
3.��Half of the calculated heparin bolus was administered prior to the first transeptal puncture.��Transseptal puncture was performed to diagnose RA and LA pressure so that safety of LA mapping and ablation could be further assessed, and to access
the left atrium and pulmonary veins for mapping and ablation.��This entailed advancing an 16 [place] Contour with needle wire apparatus and with dilator into the superior vena cava and withdrawing both (monitoring intracardiac ultrasound, fluoroscopy
and tip pressure) with the tip oriented toward the atrial septum.��The fossa ovalis was engaged (indicated by sudden displacement of the sheath tip as well as tenting of the fossa seen on intracardiac ultrasound).��Left atrial access required a pass
with the [place]rough needle extended.��Left atrial catheter position was confirmed by pressure monitoring (RA mean pressure 8 mm Hg and LA mean pressure 14 mm Hg), LA saturation (99%),��as well as fluoroscopy.��The sheath was advanced over the
dilator and positioned in the left atrium.����The remainder of the calculated heparin bolus was administered and heparin was
infused to maintain ACT at 300 -350 seconds throughout the case.
4.��RA pacing was performed via the proximal decapolar poles and LA pacing was performed via the distal decapolar poles.
5. A quadrapolar catheter was first positioned at the His position for His Bundle recording which was tagged via the 3-D Navex sytem, and then passed to the RVA for RV pacing and recording.
6. The multipolar catheter and the PFA catheter placed in each of the LIPV, LSPV, RSPV and the RIPV.��
7.��Next, a 3-D map was created using Navex.���A 3-D reconstructed CT image was compared to the 3-D Navex map to assist in anatomic interpretation, mapping and ablation.��The CT image and the NavX image were fused.
8. A total of 70 lesions were given to the right superior right inferior and posterior wall floor region. Additional substrate in the roof and the interatrial septum was targeted. There was focal connection at the roof of the right superior
pulmonary vein and the inferior portion of the right inferior pulmonary vein. The left veins were isolated antral at baseline. Target in the right veins posterior wall and antrum of the left veins entrance block was confirmed in all 4 pulmonary
veins and the posterior wall as well as down through the floor and through the roof. After 200 J cardioversion to junctional rhythm exit block was confirmed in all 4 pulmonary veins and the posterior wall. After atrial pacing the patient sinus
node activity returned in the high 40s low 50s approximately 1200 ms sinus node rate.
9. Normal sinus node and AV node function noted.
TOTAL FLOURO TIME: 16 minutes 123 mGy
TOTAL RF DURATION: 0 minutes
REVERSAL OF HEPARIN: 30 mg of protamine, slow IV administration
COMPLICATIONS:
None
Intracardiac US shows no pericardial effusion post ablation.
SUMMARY:��
Complex left atrial mapping and ablation.
Isolation of the right pulmonary veins and left atrial posterior wall as above.
RECOMMENDATIONS:
1. Ambulate in 2 hours and consider same-day discharge given vascular closure devices utilized
2. Resume anticoagulation
3.��Stop amiodarone
4.��Outpatient follow-up
Copy to: Dr. Bear Mathias
--- NOTE | 2024-10-28 16:58 | W.PN.UPDATE ---
Update Note
Progress Note Update
Pt seen post PFA. Right groin site with vascade closure, no ht/bleeding, oob ambulating, urinating without difficulty. Post EKG SB 50s w/IVCD as before, no acute changes. Resume eliquis tonight at usual time. Will discontinue amiodarone but continue
other meds as before. Followup at [facility] as scheduled. Home later today if groin site/tele remain stable.
== END 2024-10-28 17:40 | disposition home or self-care (01) ==
LOC: CATH 09:38
PROVIDERS: ATTENDING PHYSICIAN Internal Medicine Cardiovascular Disease; FAMILY PHYSICIAN Family Medicine
DX: I48.0 Paroxysmal atrial fibrillation (principal); R06.00 Dyspnea, unspecified; R42 Dizziness and giddiness; R00.2 Palpitations; Z79.899 Other long term (current) drug therapy; I10 Essential (primary) hypertension; E78.5 Hyperlipidemia, unspecified; K21.9 Gastro-esophageal reflux disease without esophagitis; Z87.19 Personal history of other diseases of the digestive system; K44.9 Diaphragmatic hernia without obstruction or gangrene; Z86.0100 Personal history of colon polyps, unspecified; K57.90 Diverticulosis of intestine, part unspecified, without perforation or abscess without bleeding; K86.1 Other chronic pancreatitis; Z96.651 Presence of right artificial knee joint; M19.90 Unspecified osteoarthritis, unspecified site; J32.9 Chronic sinusitis, unspecified; F41.9 Anxiety disorder, unspecified; E66.9 Obesity, unspecified; Z68.35 Body mass index [BMI] 35.0-35.9, adult; Z90.89 Acquired absence of other organs; Z79.01 Long term (current) use of anticoagulants
CPT/HCPCS: C1732; C1894; C1730; C1733; C1892; C1759; 36415; 80053; 83735; 85025; 85347; 85610; 86850; 86900; 86901; 93005; 93656; 93657; C1760; C1766

== ENCOUNTER 2025-01-19 06:23 | Day surgery (SDC) | payer OTHER, SELFPAY | END 2025-01-19 15:48 | disposition home or self-care (01) | LOC: GI 06:23 | PROVIDERS: ATTENDING PHYSICIAN Internal Medicine Gastroenterology | DX: Z12.11 Encounter for screening for malignant neoplasm of colon (principal); K57.30 Diverticulosis of large intestine without perforation or abscess without bleeding; K44.9 Diaphragmatic hernia without obstruction or gangrene; K29.70 Gastritis, unspecified, without bleeding; K31.89 Other diseases of stomach and duodenum; K22.70 Barrett's esophagus without dysplasia; D12.3 Benign neoplasm of transverse colon; D12.2 Benign neoplasm of ascending colon; D12.8 Benign neoplasm of rectum; D12.5 Benign neoplasm of sigmoid colon; K63.5 Polyp of colon; I86.8 Varicose veins of other specified sites; Q40.8 Other specified congenital malformations of upper alimentary tract; Z86.0100 Personal history of colon polyps, unspecified | CPT/HCPCS: 45385; 43239; 88305; 88342 ==

== ENCOUNTER 2025-07-27 06:19 | Day surgery (SDC) | payer OTHER, SELFPAY | END 2025-07-27 08:54 | disposition home or self-care (01) | LOC: GI 06:19 | PROVIDERS: ATTENDING PHYSICIAN Internal Medicine Gastroenterology | DX: Z12.11 Encounter for screening for malignant neoplasm of colon (principal); K64.8 Other hemorrhoids; K63.89 Other specified diseases of intestine; K57.30 Diverticulosis of large intestine without perforation or abscess without bleeding; D12.3 Benign neoplasm of transverse colon; D12.4 Benign neoplasm of descending colon; K62.1 Rectal polyp; Z86.0100 Personal history of colon polyps, unspecified | CPT/HCPCS: 45385; 45380; 88305 ==

== ENCOUNTER 2025-08-04 09:02 | Emergency (ER) | payer OTHER, SELFPAY ==
[2025-08-04 09:07] VITALS: BP 152/97
--- NOTE | 2025-08-04 09:59 | ED.GENMED ---
History of Present Illness
General
Chief Complaint: Skin Problem
Source: patient and physician
Exam Limitations: none
Time Seen by Provider: 08/04/25 09:41
Nursing documentation reviewed up to this point in time: agreed with
History of Present Illness
History of Present Illness:
65-year-old male presents with painful swelling in his left groin had a lipoma which increased in size with pain referred to see general surgery saw them today referred here for imaging, patient has had a upper respiratory infection and on some
antibiotics, sinus congestion as well, minimal drainage from swelling in his left groin, he takes Eliquis for A-fib
Past History
Past History
ED Past Medical History: Arrthythmia (atrial fibrillation), Asthma, HTN and Other (Pancreatitis)
ED Past Surgical History: Tonsilectomy
Social History
Tobacco: Non-smoker
Alcohol: Former
Drug: None
Personal:
Living: with family
Employment: Employed
Phy Exam
Physical Exam
Physical Exam:
Physical Exam
General: no apparent distress, not acutely ill
Neck: No
Heart: s1/s2 regular rate and rhythm, no murmur. equal radial pulses.
Lungs: no acute respiratory distress. clear bilaterally
Abdomen: Inguinal crease 3 cm elliptical area of warmth abscess with surrounding cellulitis
Neuro: alert and oriented. no focal neurological deficits
Skin: no rash
Psychiatric: well kept. interactive and cooperative
Extremities: no edema
Course
Orders/Labs/Results
Orders:
Orders
08/04/25 09:47
CT Lower Ext W/iv Cont Lt Urgent
Comment:
Reason For Exam: groin abscess
08/04/25 09:48
Electrocardiogram (*1) Urgent
Reason for Study: PreOp
EKG- Treatment ONCE
HYDROmorphone [Dilaudid] 1 mg IV NOW STA
08/04/25 10:23
Complete Blood Count/With Diff Urgent
Comprehensive Metabolic Panel Urgent
Lactic Acid Q4H
Comment: CANCEL 2nd LACTIC ACID IF 1st LACTIC ACID IS LESS THAN 2
Blood Culture Q30M
RIMA Source: Blood/Venous
Specimen Description:
Blood Culture Q30M
RIMA Source: Blood/Venous
Specimen Description:
08/04/25 11:44
PT/INR [Prothrombin Time] Routine
PTT Routine
Abnormal Lab Results
08/04/25
10:23
RBC 4.46 L 10^6/uL
(4.70-6.10)
Hct 38.9 L %
(39.0-52.0)
Immature Gran % 0.7 H %
(0-0.5)
Lymphocytes % 20.4 L %
(20.5-51.1)
Monocytes % 10.1 H %
(1.7-9.3)
Lactic Acid 0.6 L mmol/L
(0.7-2.0)
08/04/25 10:23
08/04/25 10:23
Vital Signs
Initial and Last Documented VS:
Initial Vital Signs
Temp Pulse Resp BP Pulse Ox
97.8 F 66 20 152/97 96
08/04/25 09:07 08/04/25 09:07 08/04/25 09:07 08/04/25 09:07 08/04/25 09:07
Last Documented Vital Signs
Temp Pulse Resp BP Pulse Ox
98.2 F 46 14 108/65 95
08/04/25 10:00 08/04/25 14:00 08/04/25 14:00 08/04/25 14:00 08/04/25 14:00
MDM/Problems Addressed
Differential Diagnosis Includes:
Abscess cellulitis hematoma
MDM/Problems Addressed:
Left groin
Chronic conditions affecting care: Arrhythmia
Acute Exacerbation and/or Progression of Chronic Illness: Arrhythmia
*Pulse Oximetry
SaO2: 96
Oxygen Mode of Delivery: Room air
Patient hypoxic: no
*Critical Care Note
Total Time (30-74mins, 75-104mins- exclusive of procedures): Not Applicable
Update Note
Update Note:
Drained by surgery, recommended Bactrim apparently interacts other of his meds with 6 to Doxy
ED Attending Note
-
Portions of this chart may have been created with voice recognition software.� Occasional wrong word or��sound alike� substitutions may have occurred due to the inherent limitations of voice recognition software.
Discharge Plan
Departure
Patient Disposition: Home (Routine Discharge)
Date of Disposition: 08/04/25
Time of Disposition: 12:49
Patient with high blood pressure during this ER visit?: No
Condition: Good
Discharge Problem:
Abscess
Instructions: Wound Care (DC), Cellulitis (Skin Infection), Adult (DC), Skin Abscess
Prescriptions:
New
sulfamethoxazole-trimethoprim [Bactrim DS] 800-160 mg tablet
1 tab PO BID Qty: 10 0RF
doxycycline hyclate 100 mg tablet
100 mg PO BID Qty: 14 0RF
No Action
cetirizine 10 MG tablet
10 mg PO DAILY
alprazolam 1 MG tablet extended release 24 hr
1 mg PO DAILY
Eliquis 5 MG tablet
5 mg PO BID
omeprazole 40 MG capsule,delayed release(DR/EC)
40 mg PO DAILY
atorvastatin 10 mg tablet
10 mg PO QPM
lisinopril 20 mg tablet
20 mg PO DAILY
alprazolam 0.5 mg tablet extended release 24 hr
0.5 mg PO DAILYPRN PRN (Reason: anxiety)
albuterol sulfate 90 mcg/actuation Hfa Aerosol Inhaler
2 puff INHALATION Q6H PRN (Reason: sob)
fluticasone propionate 50 mcg/actuation [place],Suspension
1 spray INTRANASAL DAILYPRN PRN (Reason: as needed )
diltiazem HCl 240 mg Capsule,Extended Release 24hr
240 mg PO DAILY Qty: 60 5RF
acetaminophen 325 mg Tablet
650 mg PO Q6H PRN (Reason: pain)
Referrals:
Lemuel Interiano MD [Active, Surgical] - Follow up in 2-3 days
Toby Delgado DO [Family Provider, Family Practice]
Stand Alone Forms: Return to Work
Activity Restrictions/Additional Instructions:
Keep wound covered
Take packing out tomorrow as discussed
No Eliquis until you are seen by Dr. Interiano or his associates later this week
Doxycycline twice a day antibiotic
Tylenol for pain
Interventions
Interventions:
*Risk Screen - Suicide Last Done: 08/04/25 09:07
*General Assessment Last Done: 08/04/25 09:07
ED-Skin Assessment Last Done: 08/04/25 10:37
Discharge Date and Time
Print Language: AZERI
[2025-08-04 10:30] VITALS: BP 111/71
[2025-08-04] MEDS: DILAUDID 1 MG IV (10:31)
[2025-08-04 10:34] LABS: Hematocrit 38.9 % (39.0-52.0); Hemoglobin 13.6 g/dL (13.0-18.0); Mean Corp Hgb Conc. 35.0 g/dL (33.0-37.0); Mean Corpuscular Volume 87.2 fL (80.0-94.0); Nucleated Red Blood Cells % 0 % (-); Platelet Count 164 10^3/uL (130-400); Red Cell Dist. Width 12.4 % (11.5-14.5)
[2025-08-04 10:36] VITALS: BMI 34.2
[2025-08-04 10:55] LABS: ALT (SGPT) 29 U/L (0-50); AST (SGOT) 25 U/L (17-59); Albumin 4.0 g/dl (3.5-5.0); Alkaline Phosphatase 86 U/L (38-126); Blood Urea Nitrogen 11 mg/dl (9-20); Calcium 9.0 mg/dl (8.4-10.2); Carbon Dioxide 27 mmol/L (22-30); Chloride 107 mmol/L (98-107); Estimated Creatinine Clearance 113 ml/min; Glucose 98 mg/dl (70-99); Potassium 4.4 mmol/L (3.5-5.1); Sodium 139 mmol/L (135-145); Total Protein 6.5 g/dl (6.3-8.2); eGFR > 60.00
[2025-08-04 11:00] VITALS: BP 124/72
[2025-08-04 12:00] VITALS: BP 111/74
[2025-08-04 12:07] LABS: INR 1.06; PT 14.1 Sec (11.4-14.6)
[2025-08-04 12:08] LABS: APTT 32.5 Sec (23.4-35.0)
[2025-08-04 13:00] VITALS: BP 129/69
--- NOTE | 2025-08-04 13:30 | CON.GS ---
Medical History
-
Chief Complaint: LEFT groin, LLE swelling, redness and pain
History of Present Illness:
Patient is a 65 yo M with a PMH of obesity, depression/anxiety, GERD, HTN, HLD, A-fib (on Eliquis, LD 10 AM), and asthma who presents with LEFT groin swelling, discomfort, and redness. He was recently seen in the general surgery office this
morning by Dr. Farley who referred him to the ED for further workup and management. Mr. Simental states that he has had a soft tissue mass in the area for years. He has been previously told that this was a 'lipoma'. Approximately 1 week ago he
acutely developed increased swelling, redness, and pain at the site. He denies any drainage. Denies any fevers or chills. Denies any trauma to the area. He has been previously on Cefdinir and Doxycycline with little to no improvement. Of note,
he is a non-smoker and nondiabetic.
Past Medical History
Past Medical History: Arrhythmias (Afib), Asthma, GERD, HTN and Hypercholesterolemia
Past Surgical History: Tonsilectomy
Social History
Tobacco: Non-Smoker
Alcohol: Former
Drug: None
Personal:
Living: With Family
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
Family History
Family History: Reviewed & Not Pertinent
Allergies / Home Medications
Allergy/AdvReac Type Severity Reaction Status Date / Time
cefdinir Allergy upset Verified 08/04/25 09:08
stomach
doxycycline Allergy anxiety Verified 08/04/25 09:08
�Medication �Instructions �Recorded �Confirmed �Type
alprazolam 1 mg tablet,extended 1 mg PO DAILY Mental Health/Anxiety 01/02/20 10/28/24 History
release 24 hr
apixaban 5 mg tablet (Eliquis) 5 mg PO BID Blood clot 01/02/20 10/28/24 History
prevention/tx
cetirizine 10 mg tablet 10 mg PO DAILY Allergies 01/02/20 10/28/24 History
omeprazole 40 mg capsule,delayed 40 mg PO DAILY Gastrointestinal 12/05/21 10/28/24 History
release issue
alprazolam 0.5 mg tablet,extended 0.5 mg PO DAILYPRN PRN anxiety 06/15/24 10/03/24 History
release 24 hr
atorvastatin 10 mg tablet 10 mg PO QPM High Cholesterol 06/15/24 10/28/24 History
lisinopril 20 mg tablet 20 mg PO DAILY Blood Pressure 06/15/24 10/28/24 History
albuterol sulfate 90 mcg/actuation 2 puff inhalation Q6H PRN sob 07/15/24 10/03/24 History
aerosol inhaler
diltiazem HCl 240 mg 240 mg PO DAILY #60 caps 07/15/24 10/28/24 Rx
capsule,extended release 24 hr
fluticasone propionate 50 1 spray intranasal DAILYPRN PRN as 07/15/24 10/06/24 History
mcg/actuation nasal needed
spray,suspension
acetaminophen 325 mg tablet 650 mg PO Q6H PRN pain 10/03/24 10/03/24 History
sulfamethoxazole 800 1 tab PO BID #10 tabs 08/04/25 Rx
mg-trimethoprim 160 mg tablet
(Bactrim DS)
Review of Systems
-
A 10 point review of systems was completed, and was negative except as per HPI.
Physical Exam
Vital Signs
Temp Pulse Resp BP Pulse Ox
98.2 F 57 11 111/71 96
08/04/25 10:00 08/04/25 10:31 08/04/25 10:31 08/04/25 10:30 08/04/25 10:00
08/03/25 08/04/25 08/05/25
06:59 06:59 06:59
Actual Weight 105.1 kg
Body Mass Index (BMI) 34.2
Lab Results
08/04/25 10:
08/04/25 10:
WBC 5.9 10^3/uL (4.8-10.8) 08/04/25 10:
Hgb 13.6 g/dL (13.0-18.0) 08/04/25 10:23
Hct 38.9 % (39.0-52.0) L 08/04/25 10:
Plt Count 164 10^3/uL (130-400) 08/04/25 10:
Abs Immat Gran (auto) 0.0 10^3/uL (0-0.05) 08/04/25 10:
Neutrophils % 68.0 % (42.2-75.2) 08/04/25 10:
Physical Exam
General: Well Developed, Well Nourished and No Apparent Distress
HEENT: Normocephalic and Anicteric
Respiratory: Non Labored Respirations
Cardiac: Regular Rhythm
GI: Soft, Non Tender and Non Distended
Skin: Warm, Dry and Other (OF left groin/upper lower extremity with 2 cm area of swelling, skin thinning, palpable fluctaunce, blanching erythema extending laterally, induration, pain to touch, no active drainage)
Neuro: Nonfocal/Grossly Intact
Data Reviewed
-
CT Scan: Image Personally Visualized and interpreted and Report Reviewed by me
Labs: Labs Reviewed by me
Assessment / Plan
-
Patient is a 65 yo M p/w likely infected sebaceous cyst
The natural history and pathophysiology of sebaceous cyst was discussed. Options for management were reviewed. Given the size and persistence on antibiotics recommend incision and drainage. Patient agrees and willing to proceed.
Plan for incision and drainage of a infected sebaceous cyst of the LLE (see separate procedural note). The procedure itself, as well as the risks, benefits, and alternatives was discussed (verbal consent obtained). Postprocedure instructions were
discussed. Remove packing tomorrow. Replace with dry gauze and tape overlying. Continue to hold Eliquis until your follow-up appointment. Tentative plan for a follow-up in the general surgery office on (08/06). Plan for antibiotic
treatment with Bactrim for 5 to 7 days. Pain control with Tylenol and Ibuprofen. All questions answered. updated by phone.
-- I&D of LEFT groin/LE infected sebaceous cyst/abscess
-- DC per ED
-- Remove packing tomorrow and cover with dry gauze and tape BIDPRN
-- Shower daily
-- Abx: Bactrim for 5-7 days
-- F/u in the office on (08/06)
--- NOTE | 2025-08-04 13:41 | W.PN.SURGUPD ---
Surgical Update
Surgical Update
Incision and drainage of a LEFT groin/lower extremity infected sebaceous cyst performed in the ED
Area was prepped with Betadine. Local anesthetic Field block was performed using 1% Lidocaine. A 1 cm linear incision was made overlying the area maximally palpable fluctuance with an 11 blade. Return of 40 cc purulent, bloodstained fluid.
Compression performed evacuating cystic material. Cavity was probed with a Q-tip breaking up any loculations and confirming a well-drained cavity. Cruciate incision was created to promote drainage. Irrigation was performed. Hemostasis was
assured with pressure. Wound was packed with the corner of a 4 x 4 gauze and covered with dry gauze and tape overlying. Patient tolerated the procedure well.
[2025-08-04 14:00] VITALS: BP 108/65
== END 2025-08-04 14:20 | disposition home or self-care (01) ==
LOC: EMR 09:02
PROVIDERS: Surgery; EMERGENCY PHYSICIAN Emergency Medicine; FAMILY PHYSICIAN Family Medicine
DX: L72.3 Sebaceous cyst (principal); E78.00 Pure hypercholesterolemia, unspecified; I10 Essential (primary) hypertension; J45.909 Unspecified asthma, uncomplicated; I48.91 Unspecified atrial fibrillation; Z79.01 Long term (current) use of anticoagulants; E66.9 Obesity, unspecified; Z68.34 Body mass index [BMI] 34.0-34.9, adult
CPT/HCPCS: 10060; 96374; 99284; 73701; 80053; 83605; 85025; 85610; 85730; 87040; 93005; Q9967